=== PATIENT | female | born 1960 | race Caucasian/White ===

== ENCOUNTER → 2016-08-24 | Outpatient (CLI) | payer MEDICARE, OTHER ==
[~2016-08-24] MED LIST: ALBU17IN INH; ATIV2TAB PO; DRIS50002 PO; FISH1000 PO; FLUT1LOT; HYDR-3719 PO; IBUP80TA PO; LAMO10TA PO; LEVO125T3 PO; LEXA1TAB2 PO; LISI2.5T3 PO; MAXA10TA14 PO; METF500T PO; MOVA1TAB2 PO; PAME25CA PO; PROT1TAB2 PO; RANI15TA PO; SIMV20TA2 PO; TOPA100T8 PO; TOPA50TA7 PO; TOPR100T PO; TRAM50TA2 PO; ZANA4CAP PO; multivitamins PO
--- NOTE | 2016-09-16 00:20 | ECWPNPC ---
PATIENT NAME: MIRNA LYNN : 1960 GENDER: FEMALE VISIT DATE: 08/24/2016 DISCHARGE DATE: 08/24/16 1509 VISIT LOCKED DATE TIME: PHYSICIAN: MICHELLE BELL RESOURCE: MICHELLE BELL REASON FOR APPOINTMENT 1. FOLLOWUP-BACK HISTORY OF PRESENT ILLNESS HISTORY OF PRESENT ILLNESS: PAIN THE PATIENT DESCRIBES THE PAIN... FALL RISK SCREENING: SCREENING :NO FALLS IN THE PAST YEAR TODAY'S VISIT: NOTES: RATES PAIN TODAY 02/20. HAD EPISODE OF NUMBNESS AFTER STANDING FOR PROLONGED PERIOD. HAD SEVERE PAIN OVER LEFT SIDE. NUMBNESS EXTENDED ONLY INTO TO TOP OF THIGH. THIS LASTED FOR 1-1 1/2 HOURS. IS HAVING MORE PAIN ON LEFT. USUAL PAIN IS PRESENT ON THE RIGHT. SAW CARDIOLOGY. IS SEEING BOWLING OR SKATING FRONT DESK CLERK. . CURRENT MEDICATIONS TAKING TRAMADOL HCL 50 MG TABLET 1 TABLET ORALLY Q 4 HRUS PRN PAIN MDD=6 TAKING WELLBUTRIN XL 100 TABLET EXTENDED RELEASE 24 HOUR 1 TABLET IN THE MORNING ORALLY ONCE A DAY TAKING EC-81 ASPIRIN 81 MG TABLET DELAYED RELEASE 1 TABLET ORALLY ONCE A DAY TAKING VENTOLIN HFA 90 MCG/ACT AEROSOL SOLUTION 2 PUFFS NEEDED INHALATION EVERY 4 HRS TAKING LEXAPRO 20 20 MG TABLET 1 TAB(S) ORAL DAILY TAKING FLUTICASONE PROPIONATE 50 MCG/DOSE SUSPENSION 2 SPRAY IN EACH NOSTRIL NASALLY ONCE A DAY TAKING FISH OIL 1000 MG CAPSULE 1 CAPSULE ORALLY ONCE A DAY TAKING IBUPROFEN 800 MG TABLET 1 TAB ORAL QID PRN TAKING LAMOTRIGINE 100 MG TABLET 1 TAB(S) ORALLY TWICE A DAY TAKING LEVOXYL 125 MCG TABLET 1 TABLET ORALLY ONCE A DAY TAKING LISINOPRIL 2.5 MG TABLET 1 TABLET ORALLY ONCE A DAY TAKING ATIVAN 2 MG TABLET 1 TAB(S) ORALLY QID PRN TAKING METFORMIN HCL ER 500 MG TABLET EXTENDED RELEASE 24 HOUR 1 TAB(S) ORALLY BID TAKING TOPROL XL 100 MG TABLET EXTENDED RELEASE 1 TABLET ORALLY ONCE A DAY TAKING NORTRIPTYLINE HCL 25 MG CAPSULE 1 CAPSULE ORALLY BID TAKING MOVANTIK 25 MG TABLET 1 TABLET IN THE MORNING ORALLY ONCE A DAY TAKING PROTONIX 20 MG TABLET DELAYED RELEASE 2 TABLETS ORALLY ONCE A DAY TAKING ZANTAC 150 MAXIMUM STRENGTH 150 MG TABLET 1 TABLET ORALLY TWICE A DAY TAKING MAXALT-LOG SORTING SUPERVISOR 10 MG TABLET DISPERSIBLE 1 TABLET ON THE TONGUE AND ALLOW TO DISSOLVE NEEDED ONE TIME ORALLY ONCE A DAY TAKING SIMVASTATIN 20 MG TABLET 1 TAB(S) ORALLY ONCE A DAY TAKING TIZANIDINE HCL 4 MG TABLET 1 TABLET NEEDED ORALLY EVERY 8 HRS TAKING TOPAMAX 100 MG TABLET 1 TABLET ORALLY TWICE A DAY TAKING VITAMIN D (ERGOCALCIFEROL) 92402 UNIT CAPSULE 1 CAPSULE ORALLY WEEKLY TAKING MULTIVITAMIN - 1 TAB(S) ORALLY DAILY TAKING MAGNESIUM _ TABLET 1 TABLET WITH A MEAL ORALLY ONCE A DAY TAKING AMBIEN 10 MG TABLET 1 TABLET AT BEDTIME NEEDED ORALLY ONCE A DAY TAKING LIDOCAINE 5 % PATCH 1 PATCH TO INTACT SKIN REMOVE AFTER 12 HOURS EXTERNALLY ONCE A DAY TAKING NORCO 10-325 MG TABLET 1-2 TABLET ORALLY EVERY 6 HRS PRN NOT-TAKING VALIUM 5 MG TABLET 1 TABLET ORALLY TAKE ON ARRIVAL FOR INJECTION NOT-TAKING VALIUM 10 MG TABLET 1 TABLET ORALLY TAKE ON ARRIVAL FOR PROCEDURE NOT-TAKING TYLENOL ARTHRITIS PAIN 650 MG TABLET EXTENDED RELEASE ORALLY BID PRN NOT-TAKING TRAMADOL HCL 50 MG TABLET 1-2 TABLET ORALLY EVERY 8 PRN PAIN MDD=3 MEDICATION LIST REVIEWED AND RECONCILED WITH THE PATIENT PAST MEDICAL HISTORY SMALL ARTERY DIABETES HTN A FIB HYPOTHYROIDISM FIBROMYALGIA PTSD ANXIETY/DEPRESSION DDD SPINAL STENOSIS ARTHRITIS ELEVATED CHOLESTEROL/TRIGLYCERIDES IBS ALLERGIES SULFA (FOR ALLERGY USE ONLY): RASH, HEADACHE: ALLERGY ENVIRONMENTAL: NASAL DRAINAGE, ITCHY EYES: ALLERGY SOCIAL HISTORY GENERAL: TOBACCO USE ARE YOU A:NONSMOKER LEARNING BARRIERS / SPECIAL NEEDS ORIENTED TO PLAN OF CARE: PATIENT, PAIN MANAGEMENT PATIENT, ORIENTED TO PLAN OF CARE: PATIENT, PAIN MANAGEMENT PATIENT. NEW PATIENT PAIN DIARY TODAY'S VISITNOTES FROM 0-10, WHAT LEVEL IS YOUR PAIN TODAY?0 PAIN CLINIC PFS, CLERGY, PUBLIC HEALTH REFERRALS PFS REFERRAL NEEDED?NO CLERGY REFERRAL NEEDED?NO PUBLIC HEALTH REFERRAL NEEDED?NO WAS THE PROVIDER NOTIFIED OF ANY PERTINENT INFO?NO PFS REFERRAL NEEDED?NO CLERGY REFERRAL NEEDED?NO PUBLIC HEALTH REFERRAL NEEDED?NO WAS THE PROVIDER NOTIFIED OF ANY PERTINENT INFO?NO REVIEW OF SYSTEMS CONSTITUTIONAL: ANY CHANGE IN YOUR MEDICAL CONDITION? NO . CHILLS NO . FEVER NO . INFECTION: DO YOU HAVE NEW INFECTIONS? NO . DO YOU HAVE HISTORY OF MRSA? NO . MUSCULOSKELETAL: ANY NEW PATTERNS OF PAIN OR NUMBNESS? YES,LEFT LUMBAR AREA WENT NUMB ON HER 07/08/16 AFTER BEING ON HER FEET A LOT. NOW EVERY ONCE IN A WHILE IT WILL BOTHER HER AGAIN. . GASTROENTEROLOGY: ANY NEW CHANGE IN BOWEL CONTROL? NO . GENITOURINARY: ANY NEW CHANGE IN BLADDER CONTROL? NO . IS THERE A CHANCE YOU COULD BE ? NO . HEMATOLOGY/LYMPH: DO YOU TAKE ANY BLOOD THINNERS? (FOR EXAMPLE- COUMADIN, PLAVIX, AGGRENOX, PLATEL, PRADAXA, OR XARELTO) NO . WHEN WAS YOUR LAST DOSE? DATE: TIME: . NEUROLOGY: HAVE YOU FALLEN IN THE PAST 6 MONTHS? YES, TRIPPED A COUPLE OF MONTHS AGO, NO INJURY. LOSES HER BALANCE MORE THAN NORMAL. . ANY NEW EXTREMITY NUMBNESS OR WEAKNESS? YES, NUMBNESS DOWN LEFT BUTTOCK AND LEG . CARDIOLOGY: DO YOU HAVE A PACEMAKER OR DEFIBRILLATOR? NO . RESPIRATORY: HAVE YOU BEEN SICK IN THE PAST WEEK? NO . FEVER NO . FLU LIKE SYMPTOMS? NO . COUGH NO . INTEGUMENTARY: DO YOU HAVE ANY RASHES OR OPEN SORES? YES, UNDER RIGHT BREAST . ALLERGIC/IMMUNO: ARE YOU ALLERGIC TO SHELLFISH OR IV DYE? NO . ANY NEW ALLERGIES? NO . PSYCHIATRIC: DO YOU HAVE THOUGHTS OF HURTING YOURSELF OR SOMEONE ELSE? NO . ARE YOU ABUSED, NEGLECTED, OR IN AN UNSAFE ENVIRONMENT? NO . ENDOCRINOLOGY: ARE YOU DIABETIC? YES . OTHER: DO YOU NEED ANY PRESCRIPTIONS? YES, TRAMADOL AND HYDROCODONE . IF YES, PLEASE LIST: ____ . ANY NEW PROBLEMS WITH YOUR MEDICATIONS? NO . WHEN DID YOU LAST EAT? ____ . WHEN DID YOU LAST DRINK? ____ . WHAT DID YOU LAST DRINK? ____ . NAME OF PERSON DRIVING YOU HOME? ____ . DO YOU HAVE ANY OTHER QUESTIONS OR CONCERNS NO . PSYCHOLOGY: ANXIETY MULTIPLE FAMILY STRESSERS. . REVIEWED BY: PROVIDER: MICHELLE BARRIGA . VITAL SIGNS WT 249.8 LBS, HT 62 IN, BMI 45.68 INDEX, BP 154/98 MM HG, HR 91 /MIN, RR 16 /MIN, TEMP 99.4 F, OXYGEN SAT % 97%, NA INITIALS SC 14:16. EXAMINATION GENERAL EXAMINATION: PSYCHALERT , ORIENTED X 3 , APPROPRIATE MOOD AND AFFECT , GOOD EYE CONTACT. LUNGS:CLEAR TO AUSCULTATION BILATERALLY. HEART:HEART RATE REGULAR, RPID. MUSCULOSKELETAL:PALPATION: POSITIVE FOR PAIN OVER L/S SPINE. POSITIVE FOR PAIN OVER L/S PARSPINALS, RIGHT SIDES GREATER THAN LEFT. GAIT SLOW,WIDE-BASED. EXQUISITE TENDERNESS OVER LEFT>RIGHT SIJ., TRIGGER POINTS:, ELICITED WITH PALPATION OVER LUMBAR PARAVERTEBRAL MUSCLES AND INTO THE SACRUM. RESTRICTION OF ROM IN THIS AREA. ASSESSMENTS LUMBAR FACET ARTHROPATHY - M46.96 (PRIMARY) BILATERAL SACROILIITIS - M46.1 MYALGIA - M79.1 CHRONIC PRESCRIPTION OPIATE USE - Z79.899 TREATMENT LUMBAR FACET ARTHROPATHY STOP NORCO TABLET, 10-325 MG, 1-2 TABLET, ORALLY, EVERY 6 HRS PRN START PERCOCET TABLET, 5-325 MG, 1 TABLET NEEDED, ORALLY, EVERY 6 HRS PRN PAIN MDD=4, 30 DAY(S), 120, REFILLS 0 NOTES: CALL WHEN ABLE TO RESCHEDULE INJECTION. UTOX TODAY. DISCUSSION HELD REGARDING INJECTION TREATMENT BUT DUE TO ELEVATED STRESS WOULD LIKE TO HOLD FOR NOW. WALKING , STRETCHES AND EXERCISE ENCOURAGED. CLINICAL NOTES: ISTOP REGISTRY REVIEWED AND DEMNOSTRATES COMPLLIANCE. BRINGS IN MEDICATIONS WHICH IS APPROPRIATE FOR WHAT WAS DISPENSED. RECENT URINE TOXICOLOGY REVIEWED. NO UNAUTHORIZED MEDICATIONS. NO ILLICIT SUBSTANCES AND PRESCRIBED MEDICATIONS WERE PRESENT. , #128 - SCREENING BMI AND F/U PLAN IN : BMI ABOVE NORMAL TODAY. DISCUSSED WITH PATIENT NUTRITIONAL FOOD CHOICES TO ASSIST WITH WEIGHT LOSS. RECCOMMENDED REDUCING SALT, SUGAR, SODA INTAKE. RECOMMEND INCREASE ACTIVITY TO INCLUDE WALKING ON A REGULAR BASIS. PROCEDURE CODES FA211 ESTABILISHED PATIENT [facility] CHARGE G8783 BP SCR PRFRM RCMDD DEFIND SCR INTVL G8730 PAIN ASSESS POS TOOL F/U PLAN DOC 3016F PT SCRND UNHLTHY OH USE 1124F ACP DISCUSS-NO DSCNMKR DOCD 1036F TOBACCO NON-USER G8427 DOC MEDS VERIFIED W/PT OR RE G8417 BMI >=30 CALCUATE W/FOLLOWUP 3288F FALL RISK ASSESSMENT DOCD FOLLOW UP 6 WEEKS ELECTRONICALLY SIGNED BY NANCY COUCH ON 09/15/2016 AT 09:01 AM EST DISCLAIMER : THIS IS A VISIT SUMMARY EXTRACTED FROM THE [employer] CHART. IT IS NOT A COPY OF THE [employer] PROGRESS NOTE. MTDD
== END ==
LOC: M PAIN 13:40
PROVIDERS: ATTEND Nurse Practitioner Family
DX: M46.1 Sacroiliitis, not elsewhere classified (principal); M79.1 Myalgia; Z79.899 Other long term (current) drug therapy; Z79.891 Long term (current) use of opiate analgesic; Z79.82 Long term (current) use of aspirin; Z79.84 Long term (current) use of oral hypoglycemic drugs; E11.9 Type 2 diabetes mellitus without complications; I10 Essential (primary) hypertension; M19.90 Unspecified osteoarthritis, unspecified site; E03.9 Hypothyroidism, unspecified; M48.00 Spinal stenosis, site unspecified; G89.29 Other chronic pain; F41.9 Anxiety disorder, unspecified; F43.10 Post-traumatic stress disorder, unspecified

== ENCOUNTER → 2016-10-17 | Outpatient (CLI) | payer MEDICARE, OTHER ==
--- NOTE | 2016-10-17 23:54 | ECWPNPC ---
PATIENT NAME: MIRNA LYNN : 1960 GENDER: FEMALE VISIT DATE: 10/17/2016 DISCHARGE DATE: 10/17/16 1500 VISIT LOCKED DATE TIME: PHYSICIAN: MICHELLE BELL RESOURCE: MICHELLE BELL REASON FOR APPOINTMENT 1. BACK, FIBRO HISTORY OF PRESENT ILLNESS HISTORY OF PRESENT ILLNESS: PAIN THE PATIENT DESCRIBES THE PAIN... FALL RISK SCREENING: SCREENING :NO FALLS IN THE PAST YEAR TODAY'S VISIT: NOTES: RATES PAIN TODAY 10/21. .HAS BEEN HAVING SWELLING OF LEFT FOOT AND TOES WITH TOES TURNING COLORS, WELL BOTH HANDS. DESCRIBES PAIN CONSTANT, ACHING, BURNING, SHARP AND STABBING, TENDR , THROBBING AND SORE, WITH SHOOTING PAIN INTO HIPS AND LEGS.. CURRENT MEDICATIONS TAKING WELLBUTRIN XL 100 TABLET EXTENDED RELEASE 24 HOUR 1 TABLET IN THE MORNING ORALLY ONCE A DAY TAKING EC-81 ASPIRIN 81 MG TABLET DELAYED RELEASE 1 TABLET ORALLY ONCE A DAY TAKING VENTOLIN HFA 90 MCG/ACT AEROSOL SOLUTION 2 PUFFS NEEDED INHALATION EVERY 4 HRS TAKING LEXAPRO 20 20 MG TABLET 1 TAB(S) ORAL DAILY TAKING FLUTICASONE PROPIONATE 50 MCG/DOSE SUSPENSION 2 SPRAY IN EACH NOSTRIL NASALLY ONCE A DAY TAKING FISH OIL 1000 MG CAPSULE 1 CAPSULE ORALLY ONCE A DAY TAKING IBUPROFEN 800 MG TABLET 1 TAB ORAL QID PRN TAKING LEVOXYL 125 MCG TABLET 1 TABLET ORALLY ONCE A DAY TAKING LISINOPRIL 2.5 MG TABLET 1 TABLET ORALLY ONCE A DAY TAKING ATIVAN 2 MG TABLET 1 TAB(S) ORALLY QID PRN TAKING METFORMIN HCL ER 500 MG TABLET EXTENDED RELEASE 24 HOUR 1 TAB(S) ORALLY BID TAKING TOPROL XL 100 MG TABLET EXTENDED RELEASE 1 TABLET ORALLY ONCE A DAY TAKING NORTRIPTYLINE HCL 25 MG CAPSULE 1 CAPSULE ORALLY BID TAKING MOVANTIK 25 MG TABLET 1 TABLET IN THE MORNING ORALLY ONCE A DAY TAKING PROTONIX 20 MG TABLET DELAYED RELEASE 2 TABLETS ORALLY ONCE A DAY TAKING ZANTAC 150 MAXIMUM STRENGTH 150 MG TABLET 1 TABLET ORALLY TWICE A DAY TAKING MAXALT-SHELF DRIER OPERATOR 10 MG TABLET DISPERSIBLE 1 TABLET ON THE TONGUE AND ALLOW TO DISSOLVE NEEDED ONE TIME ORALLY ONCE A DAY TAKING SIMVASTATIN 20 MG TABLET 1 TAB(S) ORALLY ONCE A DAY TAKING TIZANIDINE HCL 4 MG TABLET 1-2 TABLET NEEDED ORALLY EVERY 8 HRS TAKING TOPAMAX 100 MG TABLET 1 TABLET ORALLY TWICE A DAY TAKING VITAMIN D (ERGOCALCIFEROL) 07002 UNIT CAPSULE 1 CAPSULE ORALLY WEEKLY TAKING MULTIVITAMIN - 1 TAB(S) ORALLY DAILY TAKING MAGNESIUM _ TABLET 1 TABLET WITH A MEAL ORALLY ONCE A DAY TAKING AMBIEN 10 MG TABLET 1 TABLET AT BEDTIME NEEDED ORALLY ONCE A DAY TAKING LIDOCAINE 5 % PATCH 1 PATCH TO INTACT SKIN REMOVE AFTER 12 HOURS EXTERNALLY ONCE A DAY TAKING TRAMADOL HCL 50 MG TABLET 1 TABLET ORALLY Q 4 HRUS PRN PAIN MDD=6 TAKING NORCO 10-325 MG TABLET 1 TABLET NEEDED ORALLY EVERY 6 HRS PRN PAIN MDD=4 NOT-TAKING PERCOCET 5-325 MG TABLET 1 TABLET NEEDED ORALLY EVERY 6 HRS PRN PAIN MDD=4 NOT-TAKING VALIUM 5 MG TABLET 1 TABLET ORALLY TAKE ON ARRIVAL FOR INJECTION NOT-TAKING VALIUM 10 MG TABLET 1 TABLET ORALLY TAKE ON ARRIVAL FOR PROCEDURE NOT-TAKING TYLENOL ARTHRITIS PAIN 650 MG TABLET EXTENDED RELEASE ORALLY BID PRN NOT-TAKING TRAMADOL HCL 50 MG TABLET 1-2 TABLET ORALLY EVERY 8 PRN PAIN MDD=3 DISCONTINUED LAMOTRIGINE 100 MG TABLET 1 TAB(S) ORALLY TWICE A DAY MEDICATION LIST REVIEWED AND RECONCILED WITH THE PATIENT PAST MEDICAL HISTORY SMALL ARTERY DIABETES HTN A FIB HYPOTHYROIDISM FIBROMYALGIA PTSD ANXIETY/DEPRESSION DDD SPINAL STENOSIS ARTHRITIS ELEVATED CHOLESTEROL/TRIGLYCERIDES IBS ALLERGIES SULFA (FOR ALLERGY USE ONLY): RASH, HEADACHE: ALLERGY ENVIRONMENTAL: NASAL DRAINAGE, ITCHY EYES: ALLERGY SOCIAL HISTORY GENERAL: TOBACCO USE ARE YOU A:NONSMOKER LEARNING BARRIERS / SPECIAL NEEDS ORIENTED TO PLAN OF CARE: PATIENT, PAIN MANAGEMENT PATIENT, ORIENTED TO PLAN OF CARE: PATIENT, PAIN MANAGEMENT PATIENT. NEW PATIENT PAIN DIARY TODAY'S VISITNOTES FROM 0-10, WHAT LEVEL IS YOUR PAIN TODAY?0 PAIN CLINIC PFS, CLERGY, PUBLIC HEALTH REFERRALS PFS REFERRAL NEEDED?NO CLERGY REFERRAL NEEDED?NO PUBLIC HEALTH REFERRAL NEEDED?NO WAS THE PROVIDER NOTIFIED OF ANY PERTINENT INFO?NO PFS REFERRAL NEEDED?NO CLERGY REFERRAL NEEDED?NO PUBLIC HEALTH REFERRAL NEEDED?NO WAS THE PROVIDER NOTIFIED OF ANY PERTINENT INFO?NO REVIEW OF SYSTEMS CONSTITUTIONAL: ANY CHANGE IN YOUR MEDICAL CONDITION? NO . CHILLS NO . FEVER NO . INFECTION: DO YOU HAVE NEW INFECTIONS? NO . DO YOU HAVE HISTORY OF MRSA? NO . MUSCULOSKELETAL: ANY NEW PATTERNS OF PAIN OR NUMBNESS? NO . GASTROENTEROLOGY: GENERAL HAD GI BUG LAST WEEK . ANY NEW CHANGE IN BOWEL CONTROL? NO . GENITOURINARY: ANY NEW CHANGE IN BLADDER CONTROL? NO . IS THERE A CHANCE YOU COULD BE ? NO . HEMATOLOGY/LYMPH: DO YOU TAKE ANY BLOOD THINNERS? (FOR EXAMPLE- COUMADIN, PLAVIX, AGGRENOX, PLATEL, PRADAXA, OR XARELTO) NO . WHEN WAS YOUR LAST DOSE? DATE: TIME: . NEUROLOGY: HAVE YOU FALLEN IN THE PAST 6 MONTHS? NO . ANY NEW EXTREMITY NUMBNESS OR WEAKNESS? NO . CARDIOLOGY: DO YOU HAVE A PACEMAKER OR DEFIBRILLATOR? NO . RESPIRATORY: HAVE YOU BEEN SICK IN THE PAST WEEK? YES STOMACH BUG, LASTED ABOUT A WEEK, NOW RESOLVED . FEVER NO . FLU LIKE SYMPTOMS? NO . COUGH NO . INTEGUMENTARY: DO YOU HAVE ANY RASHES OR OPEN SORES? NO . ALLERGIC/IMMUNO: ARE YOU ALLERGIC TO SHELLFISH OR IV DYE? NO . ANY NEW ALLERGIES? NO . PSYCHIATRIC: DO YOU HAVE THOUGHTS OF HURTING YOURSELF OR SOMEONE ELSE? NO . ARE YOU ABUSED, NEGLECTED, OR IN AN UNSAFE ENVIRONMENT? NO . ENDOCRINOLOGY: ARE YOU DIABETIC? YES . OTHER: DO YOU NEED ANY PRESCRIPTIONS? NO . IF YES, PLEASE LIST: ____ . ANY NEW PROBLEMS WITH YOUR MEDICATIONS? NO . WHEN DID YOU LAST EAT? ____ . WHEN DID YOU LAST DRINK? ____ . WHAT DID YOU LAST DRINK? ____ . NAME OF PERSON DRIVING YOU HOME? ____ . DO YOU HAVE ANY OTHER QUESTIONS OR CONCERNS YES WOULD LIKE TO DISCUSS BLOOD WORK, AND NEED FOR AN XRAY TOE . REVIEWED BY: PROVIDER: MICHELLE BARRIGA . VITAL SIGNS WT 246.8 LBS, HT 62 IN, BMI 45.14 INDEX, BP 152/94 MM HG, HR 89 /MIN, RR 18 /MIN, TEMP 99.4 F, OXYGEN SAT % 96%, NA INITIALS CATHI REED. EXAMINATION GENERAL EXAMINATION: PSYCHALERT , ORIENTED X 3 , APPROPRIATE MOOD AND AFFECT , GOOD EYE CONTACT. LUNGS:CLEAR TO AUSCULTATION BILATERALLY. HEART:HEART RATE REGULAR, RPID. MUSCULOSKELETAL:PALPATION: POSITIVE FOR PAIN OVER L/S SPINE. POSITIVE FOR PAIN OVER L/S PARSPINALS, RIGHT SIDES GREATER THAN LEFT. TENDERNESS OVER LEFT>RIGHT SIJ., TRIGGER POINTS:, ELICITED WITH PALPATION OVER LUMBAR PARAVERTEBRAL MUSCLES AND INTO THE SACRUM. RESTRICTION OF ROM IN THIS AREA. ASSESSMENTS LUMBAR FACET ARTHROPATHY - M46.96 (PRIMARY) BILATERAL SACROILIITIS - M46.1 MYALGIA - M79.1 CHRONIC PRESCRIPTION OPIATE USE - Z79.899 SYSTEMIC LUPUS ERYTHEMATOSUS, UNSPECIFIED SLE TYPE, UNSPECIFIED ORGAN INVOLVEMENT STATUS - M32.9 TREATMENT LUMBAR FACET ARTHROPATHY INJECTION FACET JOINT/NERVE LUMBAR/SACRALARABELLAMICHELLE Gildardo 10/17/2016 2:18:54 PM > LUMBAR THERAPEUTIC FACETS WITH SEDATION NOTES: DISPOSE OF OXYCODONE WITH FORMAL COUNT,FACET JOINT INJECTION MATERIAL WAS PRINTED,FACET JOINT INJECTION: YOUR EXPERIENCE MATERIAL WAS PRINTEDNO DIABETES MEDS AM OF INJECTION. [facility]AL [facility] REASON:LAB POSITIVE FOR LUPUS - HAD PREVIOUSLY SEEN RHEUMATOLOGY IN [place] 9 YEARS AGO - FELT TO BE POSITIVE FOR LUPUS THEM. HAVING MORE JOINT AND SKIN ISSUES PROCEDURE CODES FA211 ESTABILISHED PATIENT [facility] CHARGE G8730 PAIN ASSESS POS TOOL F/U PLAN DOC G8427 DOC MEDS VERIFIED W/PT OR RE DISPOSITION & COMMUNICATION FOLLOW UP CONTINE CURRENT MEDS (REASON: 7 WEEKS) ELECTRONICALLY SIGNED BY NANCY COUCH ON 10/17/2016 AT 06:50 PM EST DISCLAIMER : THIS IS A VISIT SUMMARY EXTRACTED FROM THE [employer] CHART. IT IS NOT A COPY OF THE [employer] PROGRESS NOTE. YANA
== END ==
LOC: M PAIN 13:20
PROVIDERS: ATTEND Nurse Practitioner Family
DX: Z09 Encounter for follow-up examination after completed treatment for conditions other than malignant neoplasm (principal); G89.29 Other chronic pain; M46.1 Sacroiliitis, not elsewhere classified; M79.1 Myalgia; M32.9 Systemic lupus erythematosus, unspecified; E11.9 Type 2 diabetes mellitus without complications; I48.91 Unspecified atrial fibrillation; E03.9 Hypothyroidism, unspecified; F43.10 Post-traumatic stress disorder, unspecified; F41.9 Anxiety disorder, unspecified; F32.9 Major depressive disorder, single episode, unspecified; M51.9 Unspecified thoracic, thoracolumbar and lumbosacral intervertebral disc disorder; M48.00 Spinal stenosis, site unspecified; E78.00 Pure hypercholesterolemia, unspecified; K58.9 Irritable bowel syndrome, unspecified; Z88.2 Allergy status to sulfonamides; J30.89 Other allergic rhinitis; Z79.82 Long term (current) use of aspirin; Z79.1 Long term (current) use of non-steroidal anti-inflammatories (NSAID); Z79.891 Long term (current) use of opiate analgesic; Z79.899 Other long term (current) drug therapy

== ENCOUNTER → 2016-12-05 | Outpatient (CLI) | payer MEDICARE, OTHER ==
--- NOTE | 2016-12-22 00:45 | ECWPNPC ---
PATIENT NAME: MIRNA LYNN : 1960 GENDER: FEMALE VISIT DATE: 12/05/2016 DISCHARGE DATE: 12/05/16 1552 VISIT LOCKED DATE TIME: PHYSICIAN: MICHELLE BELL RESOURCE: MICHELLE BELL REASON FOR APPOINTMENT 1. 7 WEEKS HISTORY OF PRESENT ILLNESS HISTORY OF PRESENT ILLNESS: PAIN THE PATIENT DESCRIBES THE PAIN... FALL RISK SCREENING: SCREENING :NO FALLS IN THE PAST YEAR TODAY'S VISIT: NOTES: RATES PAIN LEVEL TODAY 6/10. DESCRIBES PAIN CONSTANT, BURNING, SHARP, STABBING, TENDER, SORE AND SHOOTING.RECENT BRONCHITIS JUST FINISHING ZPACK AND STEROIDS. HAD PREVIOUS GI BUG AND HAS HAD WORKUP. HAS A SENSE OF BUZZING IN BOTH HANDS FROM WRIST TO TIPS R>L. . CURRENT MEDICATIONS TAKING WELLBUTRIN XL 100 TABLET EXTENDED RELEASE 24 HOUR 1 TABLET IN THE MORNING ORALLY ONCE A DAY TAKING EC-81 ASPIRIN 81 MG TABLET DELAYED RELEASE 1 TABLET ORALLY ONCE A DAY TAKING VENTOLIN HFA 90 MCG/ACT AEROSOL SOLUTION 2 PUFFS NEEDED INHALATION EVERY 4 HRS TAKING LEXAPRO 20 20 MG TABLET 1 TAB(S) ORAL DAILY TAKING FLUTICASONE PROPIONATE 50 MCG/DOSE SUSPENSION 2 SPRAY IN EACH NOSTRIL NASALLY ONCE A DAY TAKING FISH OIL 1000 MG CAPSULE 1 CAPSULE ORALLY ONCE A DAY TAKING IBUPROFEN 800 MG TABLET 1 TAB ORAL QID PRN TAKING LEVOXYL 125 MCG TABLET 1 TABLET ORALLY ONCE A DAY TAKING LISINOPRIL 2.5 MG TABLET 1 TABLET ORALLY ONCE A DAY TAKING METFORMIN HCL ER 500 MG TABLET EXTENDED RELEASE 24 HOUR 1 TAB(S) ORALLY BID TAKING TOPROL XL 100 MG TABLET EXTENDED RELEASE 1 TABLET ORALLY ONCE A DAY TAKING NORTRIPTYLINE HCL 25 MG CAPSULE 1 CAPSULE ORALLY BID TAKING MOVANTIK 25 MG TABLET 1 TABLET IN THE MORNING ORALLY ONCE A DAY TAKING PROTONIX 20 MG TABLET DELAYED RELEASE 2 TABLETS ORALLY ONCE A DAY TAKING ZANTAC 150 MAXIMUM STRENGTH 150 MG TABLET 1 TABLET ORALLY TWICE A DAY TAKING MAXALT-NEGOTIATIONS DIRECTOR 10 MG TABLET DISPERSIBLE 1 TABLET ON THE TONGUE AND ALLOW TO DISSOLVE NEEDED ONE TIME ORALLY ONCE A DAY TAKING SIMVASTATIN 20 MG TABLET 1 TAB(S) ORALLY ONCE A DAY TAKING TIZANIDINE HCL 4 MG TABLET 1-2 TABLET NEEDED ORALLY EVERY 8 HRS TAKING TOPAMAX 100 MG TABLET 1 TABLET ORALLY TWICE A DAY TAKING VITAMIN D (ERGOCALCIFEROL) 63346 UNIT CAPSULE 1 CAPSULE ORALLY WEEKLY TAKING MULTIVITAMIN - 1 TAB(S) ORALLY DAILY TAKING MAGNESIUM _ TABLET 1 TABLET WITH A MEAL ORALLY ONCE A DAY TAKING AMBIEN 10 MG TABLET 1 TABLET AT BEDTIME NEEDED ORALLY ONCE A DAY TAKING LIDOCAINE 5 % PATCH 1 PATCH TO INTACT SKIN REMOVE AFTER 12 HOURS EXTERNALLY ONCE A DAY TAKING TRAMADOL HCL 50 MG TABLET 1 TABLET ORALLY Q 4 HRUS PRN PAIN MDD=6 TAKING NORCO 10-325 MG TABLET 1 TABLET NEEDED ORALLY EVERY 6 HRS PRN PAIN MDD=4 NOT-TAKING ATIVAN 2 MG TABLET 1 TAB(S) ORALLY QID PRN NOT-TAKING PERCOCET 5-325 MG TABLET 1 TABLET NEEDED ORALLY EVERY 6 HRS PRN PAIN MDD=4 NOT-TAKING VALIUM 5 MG TABLET 1 TABLET ORALLY TAKE ON ARRIVAL FOR INJECTION NOT-TAKING VALIUM 10 MG TABLET 1 TABLET ORALLY THREE TIMES DAILY NOT-TAKING TYLENOL ARTHRITIS PAIN 650 MG TABLET EXTENDED RELEASE ORALLY BID PRN NOT-TAKING TRAMADOL HCL 50 MG TABLET 1-2 TABLET ORALLY EVERY 8 PRN PAIN MDD=3 MEDICATION LIST REVIEWED AND RECONCILED WITH THE PATIENT PAST MEDICAL HISTORY SMALL ARTERY DIABETES HTN A FIB HYPOTHYROIDISM FIBROMYALGIA PTSD ANXIETY/DEPRESSION DDD SPINAL STENOSIS ARTHRITIS ELEVATED CHOLESTEROL/TRIGLYCERIDES IBS ALLERGIES SULFA (FOR ALLERGY USE ONLY): RASH, HEADACHE: ALLERGY ENVIRONMENTAL: NASAL DRAINAGE, ITCHY EYES: ALLERGY SOCIAL HISTORY GENERAL: PAIN CLINIC PFS, CLERGY, PUBLIC HEALTH REFERRALS CLERGY REFERRAL NEEDED?NO WAS THE PROVIDER NOTIFIED OF ANY PERTINENT INFO?NO PFS REFERRAL NEEDED?NO PUBLIC HEALTH REFERRAL NEEDED?NO PATIENT: ____. REVIEW OF SYSTEMS CONSTITUTIONAL: ANY CHANGE IN YOUR MEDICAL CONDITION? YES PT RECENTLY DIAGNOSED WITH LUPUS . CHILLS NO . FEVER NO . INFECTION: DO YOU HAVE NEW INFECTIONS? NO . DO YOU HAVE HISTORY OF MRSA? NO . MUSCULOSKELETAL: ANY NEW PATTERNS OF PAIN OR NUMBNESS? YES PT REPORTS A NEW &QUOT;BUZZING&QUOT; FEELING IN BOTH HANDS, AND SOMETIMES IN FEET WELL. . GASTROENTEROLOGY: ANY NEW CHANGE IN BOWEL CONTROL? NO . GENITOURINARY: ANY NEW CHANGE IN BLADDER CONTROL? NO . IS THERE A CHANCE YOU COULD BE ? NO . HEMATOLOGY/LYMPH: DO YOU TAKE ANY BLOOD THINNERS? (FOR EXAMPLE- COUMADIN, PLAVIX, AGGRENOX, PLATEL, PRADAXA, OR XARELTO) NO . WHEN WAS YOUR LAST DOSE? DATE: TIME: . NEUROLOGY: HAVE YOU FALLEN IN THE PAST 6 MONTHS? NO . ANY NEW EXTREMITY NUMBNESS OR WEAKNESS? NO . CARDIOLOGY: DO YOU HAVE A PACEMAKER OR DEFIBRILLATOR? NO . RESPIRATORY: HAVE YOU BEEN SICK IN THE PAST WEEK? YES PT TREATED FOR BRONCHITIS WITH A Z-PACK, PREDNISONE TAPER. PT FEELS THAT BRONCHITIS IS RESOLVING. . FEVER NO . FLU LIKE SYMPTOMS? NO . COUGH NO . INTEGUMENTARY: DO YOU HAVE ANY RASHES OR OPEN SORES? YES PT HAS A RED RASH OVER BOTH CHEEKS, NOT ITCHY OR RAISED . ALLERGIC/IMMUNO: ARE YOU ALLERGIC TO SHELLFISH OR IV DYE? NO . ANY NEW ALLERGIES? NO . PSYCHIATRIC: DO YOU HAVE THOUGHTS OF HURTING YOURSELF OR SOMEONE ELSE? NO . ARE YOU ABUSED, NEGLECTED, OR IN AN UNSAFE ENVIRONMENT? NO . ENDOCRINOLOGY: ARE YOU DIABETIC? YES . OTHER: DO YOU NEED ANY PRESCRIPTIONS? YES . IF YES, PLEASE LIST: ____TRAMADOL, HYDROCODONE . ANY NEW PROBLEMS WITH YOUR MEDICATIONS? NO . WHEN DID YOU LAST EAT? ____ . WHEN DID YOU LAST DRINK? ____ . WHAT DID YOU LAST DRINK? ____ . NAME OF PERSON DRIVING YOU HOME? ____ . DO YOU HAVE ANY OTHER QUESTIONS OR CONCERNS YES PT HAS BEEN SICK OVER A MONTH WITH STOMACH ISSUES, AND HAD SOME TESTING DONE . REVIEWED BY: PROVIDER: MICHELLE BARRIGA . VITAL SIGNS WT 247.2 LBS, HT 62 IN, BMI 45.21 INDEX, BP 161/80 MM HG, HR 58 /MIN, RR 18 /MIN, TEMP 99.4 F, OXYGEN SAT % 96%, NA INITIALS SC 14:27. EXAMINATION GENERAL EXAMINATION: PSYCHALERT , ORIENTED X 3 , APPROPRIATE MOOD AND AFFECT , GOOD EYE CONTACT. LUNGS:CLEAR TO AUSCULTATION BILATERALLY. HEART:HEART RATE REGULAR, RPID. MUSCULOSKELETAL:PALPATION: POSITIVE FOR PAIN OVER L/S SPINE. POSITIVE FOR PAIN OVER L/S PARSPINALS, RIGHT SIDES GREATER THAN LEFT. TENDERNESS OVER LEFT>RIGHT SIJ., TRIGGER POINTS:, ELICITED WITH PALPATION OVER LUMBAR PARAVERTEBRAL MUSCLES AND INTO THE SACRUM. RESTRICTION OF ROM IN THIS AREA. ASSESSMENTS LUMBAR FACET ARTHROPATHY - M46.96 (PRIMARY) BILATERAL SACROILIITIS - M46.1 MYALGIA - M79.1 CHRONIC PRESCRIPTION OPIATE USE - Z79.899 SYSTEMIC LUPUS ERYTHEMATOSUS, UNSPECIFIED SLE TYPE, UNSPECIFIED ORGAN INVOLVEMENT STATUS - M32.9 TREATMENT LUMBAR FACET ARTHROPATHY REFILL TRAMADOL HCL TABLET, 50 MG, 1 TABLET, ORALLY, Q 4 HRUS PRN PAIN MDD=6, 30 DAY(S), 180, REFILLS 2 REFILL NORCO TABLET, 10-325 MG, 1 TABLET NEEDED, ORALLY, EVERY 6 HRS PRN PAIN MDD=4, 30 DAY(S), 120, REFILLS 0 NOTES: CONTINUE WALKING, EXERCISES AND STRETCHES.,FACET JOINT INJECTION: YOUR EXPERIENCE MATERIAL WAS PRINTED. OTHERS NOTES: IS SCHEDULED BILATERAL THERAPEUTIC LUMBAR FACET BLOCK WITH SEDATION. PREVENTIVE MEDICINE PAIN CLINIC TEACHING: PROCEDURE TEACHING REVIEWED FACET INJECTIONS AND IV SEDATION WITH PATIENT. SHE VERBALIZED UNDERSTANDING. CM. PROCEDURE CODES FA211 ESTABILISHED PATIENT [facility] CHARGE G8730 PAIN ASSESS POS TOOL F/U PLAN DOC G8427 DOC MEDS VERIFIED W/PT OR RE DISPOSITION & COMMUNICATION FOLLOW UP AFTER INJECTION - ELECTRONICALLY SIGNED BY NANCY COUCH ON 12/21/2016 AT 11:56 AM EDT DISCLAIMER : THIS IS A VISIT SUMMARY EXTRACTED FROM THE [employer] CHART. IT IS NOT A COPY OF THE [employer] PROGRESS NOTE. YANA
== END ==
LOC: M PAIN 14:20
PROVIDERS: ATTEND Nurse Practitioner Family
DX: G89.29 Other chronic pain (principal); M46.1 Sacroiliitis, not elsewhere classified; M79.1 Myalgia; M32.9 Systemic lupus erythematosus, unspecified; E11.9 Type 2 diabetes mellitus without complications; I10 Essential (primary) hypertension; I48.91 Unspecified atrial fibrillation; E03.9 Hypothyroidism, unspecified; F43.10 Post-traumatic stress disorder, unspecified; F41.9 Anxiety disorder, unspecified; F32.9 Major depressive disorder, single episode, unspecified; M47.819 Spondylosis without myelopathy or radiculopathy, site unspecified; M19.90 Unspecified osteoarthritis, unspecified site; E78.00 Pure hypercholesterolemia, unspecified; Z88.2 Allergy status to sulfonamides; J30.9 Allergic rhinitis, unspecified; Z79.82 Long term (current) use of aspirin; Z79.84 Long term (current) use of oral hypoglycemic drugs; Z79.899 Other long term (current) drug therapy

== ENCOUNTER → 2016-12-13 | Outpatient (CLI) | payer MEDICARE, OTHER ==
[~2016-12-13] MED LIST changes: +BUPIVACAINE HCL 0.25% 30 ML VIAL As Ordered ONE; +ISOVUE-M 300 61% 15ML VIAL (Q9967) As Ordered ONE; +LIDOCAINE 1% SDV INJ 30 ML VIAL As Ordered ONE; +MIDAZOLAM INJ 2 MG/2 ML VIAL (J2250) As Ordered ONE; +TRIAMCINOLONE ACETONIDE SUSP 40 MG/ML VIAL (J3301) As Ordered ONE; +fentaNYL 100 MCG/2 ML INJECTION (J3010) As Ordered ONE
--- NOTE | 2016-12-13 18:07 | REP ---
FACET BLOCK: The images were reviewed with Dr. Rice. The patient has a history of low back pain. The portable C-ARM was provided in the OR for Dr. Duron for fluoroscopic guidance. 4 intraoperative fluoroscopic spot films were obtained for needle placement verification for bilateral lumbar facet injection. The films are on the PACs system and are available for review. 26 seconds of fluoroscopic time was utilized for this procedure. Reviewed by NERY Montalvo 12/14/2016 09:41 AEdited and Signed by Mat Rice MD 12/14/2016 04:41 P
--- NOTE | 2016-12-18 23:46 | ECWPNPC ---
PATIENT NAME: MIRNA LYNN : 1960 GENDER: FEMALE VISIT DATE: 12/13/2016 DISCHARGE DATE: 12/13/16 1415 VISIT LOCKED DATE TIME: PHYSICIAN: NEGRITO GREEN RESOURCE: NEGRITO GREEN REASON FOR APPOINTMENT 1. LFB W SEDATION HISTORY OF PRESENT ILLNESS HISTORY OF PRESENT ILLNESS: PAIN THE PATIENT DESCRIBES THE PAIN... FALL RISK SCREENING: SCREENING :NO FALLS IN THE PAST YEAR CURRENT MEDICATIONS TAKING WELLBUTRIN XL 100 TABLET EXTENDED RELEASE 24 HOUR 1 TABLET IN THE MORNING ORALLY ONCE A DAY, NOTES: 12-12-161399 TAKING EC-81 ASPIRIN 81 MG TABLET DELAYED RELEASE 1 TABLET ORALLY ONCE A DAY, NOTES: 12-12-161399 TAKING VENTOLIN HFA 90 MCG/ACT AEROSOL SOLUTION 2 PUFFS NEEDED INHALATION EVERY 4 HRS, NOTES: NONE TAKING LEXAPRO 20 20 MG TABLET 1 TAB(S) ORAL DAILY, NOTES: 12-12-161399 TAKING FLUTICASONE PROPIONATE 50 MCG/DOSE SUSPENSION 2 SPRAY IN EACH NOSTRIL NASALLY ONCE A DAY, NOTES: 12-12-161399 TAKING FISH OIL 1000 MG CAPSULE 1 CAPSULE ORALLY ONCE A DAY, NOTES: 12-12-161399 TAKING IBUPROFEN 800 MG TABLET 1 TAB ORAL QID PRN, NOTES: 12-12-162099 TAKING LEVOXYL 125 MCG TABLET 1 TABLET ORALLY ONCE A DAY, NOTES: 12-12-161399 TAKING LISINOPRIL 2.5 MG TABLET 1 TABLET ORALLY ONCE A DAY, NOTES: 12-12-161399 TAKING METFORMIN HCL ER 500 MG TABLET EXTENDED RELEASE 24 HOUR 1 TAB(S) ORALLY BID, NOTES: 12-12-162099 TAKING TOPROL XL 100 MG TABLET EXTENDED RELEASE 1 TABLET ORALLY ONCE A DAY, NOTES: 12-12-161399 TAKING NORTRIPTYLINE HCL 25 MG CAPSULE 1 CAPSULE ORALLY BID, NOTES: 12-12-161399 TAKING MOVANTIK 25 MG TABLET 1 TABLET IN THE MORNING ORALLY ONCE A DAY, NOTES: NONE TAKING PROTONIX 20 MG TABLET DELAYED RELEASE 2 TABLETS ORALLY ONCE A DAY, NOTES: 12-12-161399 TAKING ZANTAC 150 MAXIMUM STRENGTH 150 MG TABLET 1 TABLET ORALLY TWICE A DAY, NOTES: 12-12-16 1500 TAKING MAXALT-PORCELAIN ENAMEL SPRAYER 10 MG TABLET DISPERSIBLE 1 TABLET ON THE TONGUE AND ALLOW TO DISSOLVE NEEDED ONE TIME ORALLY ONCE A DAY, NOTES: NONE TAKING SIMVASTATIN 20 MG TABLET 1 TAB(S) ORALLY ONCE A DAY, NOTES: 12-12-161399 TAKING TIZANIDINE HCL 4 MG TABLET 1-2 TABLET NEEDED ORALLY EVERY 8 HRS, NOTES: 12-12-162099 TAKING TOPAMAX 100 MG TABLET 1 TABLET ORALLY TWICE A DAY, NOTES: 12-12-161399 TAKING VITAMIN D (ERGOCALCIFEROL) 37968 UNIT CAPSULE 1 CAPSULE ORALLY WEEKLY, NOTES: 12-09-16 TAKING MULTIVITAMIN - 1 TAB(S) ORALLY DAILY, NOTES: 12-12-161399 TAKING MAGNESIUM _ TABLET 1 TABLET WITH A MEAL ORALLY ONCE A DAY, NOTES: 12-12-161399 TAKING AMBIEN 10 MG TABLET 1 TABLET AT BEDTIME NEEDED ORALLY ONCE A DAY, NOTES: 12-12-162099 TAKING LIDOCAINE 5 % PATCH 1 PATCH TO INTACT SKIN REMOVE AFTER 12 HOURS EXTERNALLY ONCE A DAY, NOTES: 12-12-162099 TAKING TRAMADOL HCL 50 MG TABLET 1 TABLET ORALLY Q 4 HRUS PRN PAIN MDD=6, NOTES: 12-12-162099 TAKING NORCO 10-325 MG TABLET 1 TABLET NEEDED ORALLY EVERY 6 HRS PRN PAIN MDD=4, NOTES: 12-12-16999 NOT-TAKING ATIVAN 2 MG TABLET 1 TAB(S) ORALLY QID PRN NOT-TAKING PERCOCET 5-325 MG TABLET 1 TABLET NEEDED ORALLY EVERY 6 HRS PRN PAIN MDD=4 NOT-TAKING VALIUM 5 MG TABLET 1 TABLET ORALLY TAKE ON ARRIVAL FOR INJECTION NOT-TAKING VALIUM 10 MG TABLET 1 TABLET ORALLY THREE TIMES DAILY NOT-TAKING TYLENOL ARTHRITIS PAIN 650 MG TABLET EXTENDED RELEASE ORALLY BID PRN NOT-TAKING TRAMADOL HCL 50 MG TABLET 1-2 TABLET ORALLY EVERY 8 PRN PAIN MDD=3 MEDICATION LIST REVIEWED AND RECONCILED WITH THE PATIENT PAST MEDICAL HISTORY SMALL ARTERY DIABETES HTN A FIB HYPOTHYROIDISM FIBROMYALGIA PTSD ANXIETY/DEPRESSION DDD SPINAL STENOSIS ARTHRITIS ELEVATED CHOLESTEROL/TRIGLYCERIDES IBS ALLERGIES SULFA (FOR ALLERGY USE ONLY): RASH, HEADACHE: ALLERGY ENVIRONMENTAL: NASAL DRAINAGE, ITCHY EYES: ALLERGY REVIEW OF SYSTEMS CONSTITUTIONAL: ANY CHANGE IN YOUR MEDICAL CONDITION? NO . CHILLS NO . FEVER NO . INFECTION: DO YOU HAVE NEW INFECTIONS? NO . DO YOU HAVE HISTORY OF MRSA? NO . MUSCULOSKELETAL: ANY NEW PATTERNS OF PAIN OR NUMBNESS? NO . GASTROENTEROLOGY: ANY NEW CHANGE IN BOWEL CONTROL? NO . GENITOURINARY: ANY NEW CHANGE IN BLADDER CONTROL? NO . IS THERE A CHANCE YOU COULD BE ? NO . HEMATOLOGY/LYMPH: DO YOU TAKE ANY BLOOD THINNERS? (FOR EXAMPLE- COUMADIN, PLAVIX, AGGRENOX, PLATEL, PRADAXA, OR XARELTO) NO . WHEN WAS YOUR LAST DOSE? DATE: TIME: . NEUROLOGY: HAVE YOU FALLEN IN THE PAST 6 MONTHS? NO . ANY NEW EXTREMITY NUMBNESS OR WEAKNESS? NO . CARDIOLOGY: DO YOU HAVE A PACEMAKER OR DEFIBRILLATOR? NO . RESPIRATORY: HAVE YOU BEEN SICK IN THE PAST WEEK? NO . FEVER NO . FLU LIKE SYMPTOMS? NO . COUGH NO . INTEGUMENTARY: DO YOU HAVE ANY RASHES OR OPEN SORES? NO . ALLERGIC/IMMUNO: ARE YOU ALLERGIC TO SHELLFISH OR IV DYE? NO . ANY NEW ALLERGIES? NO . PSYCHIATRIC: DO YOU HAVE THOUGHTS OF HURTING YOURSELF OR SOMEONE ELSE? NO . ARE YOU ABUSED, NEGLECTED, OR IN AN UNSAFE ENVIRONMENT? NO . ENDOCRINOLOGY: ARE YOU DIABETIC? YES . OTHER: DO YOU NEED ANY PRESCRIPTIONS? NO . IF YES, PLEASE LIST: ____ . ANY NEW PROBLEMS WITH YOUR MEDICATIONS? NO . WHEN DID YOU LAST EAT? 12-12-16 PM . WHEN DID YOU LAST DRINK? 12-12-16 PM . WHAT DID YOU LAST DRINK? WATER . NAME OF PERSON DRIVING YOU HOME? BRITNI . DO YOU HAVE ANY OTHER QUESTIONS OR CONCERNS NO . REVIEWED BY: PROVIDER: . VITAL SIGNS WT 251.2 LBS, HT 62 IN, BMI 45.94 INDEX, BP 140/75 MM HG, HR 72 /MIN, RR 16 /MIN, TEMP 97.8 F, OXYGEN SAT % 97%, NA INITIALS TL 1109, REVIEWED BY: CM. ASSESSMENTS SPONDYLOSIS WITHOUT MYELOPATHY OR RADICULOPATHY, LUMBAR REGION - M47.816 (PRIMARY) SPONDYLOSIS WITHOUT MYELOPATHY OR RADICULOPATHY, LUMBOSACRAL REGION - M47.817 PROCEDURES PN LUMBAR FACET BLOCK THERAPEUTIC PRE PROCEDURE DIAGNOSIS LUMBAR SPONDYLOSIS, LUMBOSACRAL SPONDYLOSIS POST PROCEDURE DIAGNOSIS LUMBAR SPONDYLOSIS, LUMBOSACRAL SPONDYLOSIS PROCEDURE BILATERAL L4-L5 AND L5-S1 LUMBAR FACET THERAPEUTIC BLOCK SURGEON DR. NEGRITO GREEN HOTEL RECREATIONAL FACILITIES MANAGER NONE ANESTHESIA LOCAL WITH IV SEDATION PRE PROCEDURE NOTE THE PATIENT HAS A HISTORY OF CHRONIC LOW BACK PAIN. I EVALUATE THE PATIENT AND REVIEWED THE CHART. I WENT OVER THE RISKS, ALTERNATIVES, AND BENEFITS ASSOCIATED WITH THIS PROCEDURE. PATIENT WANTS IV SEDATION DUE TO THE DISCOMFORT, PAIN, AND ANXIETY THIS PROCEDURE WILL CAUSE HER. THE PATIENT WOULD LIKE TO PROCEED AND GIVE CONSENT TO PERFORMED THE PROCEDURE WITH IV SEDATION. SHE REPORTS BEING VERY ANXIOUS .THE PATIENT DENIES UNEXPLAINABLE WEIGHT LOSS, FEVER, CHILLS, OR NEW CHANGES IN URINARY OR BOWEL CONTROL DESCRIPTION OF PROCEDURE THE PATIENT WAS BROUGHT TO THE PROCEDURE ROOM AND PLACED IN THE PRONE POSITION. THE LUMBOSACRAL AREA WAS CLEANED WITH CHLORAPREP SOLUTION AND DRAPED ASEPTICALLY. THE PROCEDURE WAS DONE UNDER STERILE CONDITIONS. I CHECKED LATERALITY AND THE LEVEL WHERE THE PROCEDURE WAS GOING TO BE PERFORMED WITH THE PATIENT AND THE SUPPORTING STAFF AT THE MOMENT OF THE TIME OUT IN THE PROCEDURE ROOM. UNDER FLUOROSCOPIC GUIDANCE, THE TARGET POINT WAS SELECTED AT THE RIGHT AND LEFT L4-L5 AND L5-S1 FACET JOINT. TARGET POINT WAS SELECTED AFTER LATERAL ROTATION AND TILT OF THE MAGNIFIER OF THE C-ARM. LIDOCAINE 0.5% WAS USED TO NUMB THE SKIN AND THE SUBCUTANEOUS TISSUE BELOW IT. SPINAL NEEDLES, 22-GAUGE, WERE ADVANCED UNDER FLUOROSCOPIC GUIDANCE AND FOLLOWING PATIENT FEEDBACK UNTIL THE TARGETS WERE TOUCHED. THE POSITION OF THE NEEDLES WAS VERIFIED WITH AP AND LATERAL VIEWS. AFTER PROPER POSITION OF THE NEEDLES WAS ACHIEVED, ISOVUE-M DYE 30% 0.1 ML WAS INJECTED SHOWING ADEQUATE SPREAD OF THE DYE. THEN A SOLUTION OF 1.9 ML OF BUPIVACAINE 0.125% OF KENALOG 10 MG WAS INJECTED AT EACH SITE. PATIENT RECEIVED FENTANYL 50 MCG IV DIVIDED DOSES. FACE TO FACE TIME WAS 14 MINUTES. THERE WAS NO EVIDENCE OF BLOOD, PARESTHESIA OR CEREBROSPINAL FLUID DURING THE PROCEDURE. THE PATIENT WAS SENT TO THE RECOVERY ROOM. THE PATIENT WAS MOVING THE EXTREMITIES AND DOING WELL. THERE WAS NO COMPLICATION DURING THE PROCEDURE. FLUOROSCOPY TIME WAS 26 SECONDS POST PROCEDURE NOTE THE PATIENT WILL BE SEEN IN A FOLLOW UP IN THE NEXT FEW WEEKS. INSTRUCTIONS WERE GIVEN, QUESTIONS WERE ANSWERED, AND THE PATIENT EXPRESSED UNDERSTANDING AND AGREES WITH THE PLAN. I, LASHANDA CONTI, DOCUMENTED THE ABOVE INFORMATION ACTING A SCRIBE FOR DR. GREEN. I HAVE REVIEWED THE ABOVE DOCUMENT, WRITTEN BY LASHANDA CONTI SCRIBJoanne AND I VERIFY THAT IT IS ACCURATE. DIAGNOST[facility] FACET BLOCK (PAIN)[id number] PROCEDURE CODES 95602 INJ PARAVERT F JNT L/S 1 LEV 74994 INJ PARAVERT F JNT L/S 2 LEV 6045F RADXPS IN END [id number] PXD 90962 MOD SED SAME PHYS/QHP 5/>YRS DISPOSITION & COMMUNICATION FOLLOW UP 3 WEEKS ELECTRONICALLY SIGNED BY NEGRITO GREEN MD ON 12/18/2016 AT 05:03 PM EDT DISCLAIMER : THIS IS A VISIT SUMMARY EXTRACTED FROM THE [employer] CHART. IT IS NOT A COPY OF THE [employer] PROGRESS NOTE. MTDD
== END ==
LOC: M PAIN 11:00
PROVIDERS: ATTEND Anesthesiology
DX: G89.29 Other chronic pain (principal); M47.816 Spondylosis without myelopathy or radiculopathy, lumbar region; M47.817 Spondylosis without myelopathy or radiculopathy, lumbosacral region; I73.9 Peripheral vascular disease, unspecified; E11.9 Type 2 diabetes mellitus without complications; I10 Essential (primary) hypertension; I48.91 Unspecified atrial fibrillation; E03.9 Hypothyroidism, unspecified; M79.7 Fibromyalgia; F43.10 Post-traumatic stress disorder, unspecified; F32.9 Major depressive disorder, single episode, unspecified; F43.29 Adjustment disorder with other symptoms; M48.00 Spinal stenosis, site unspecified; M19.90 Unspecified osteoarthritis, unspecified site; E78.00 Pure hypercholesterolemia, unspecified; Z88.2 Allergy status to sulfonamides; J30.89 Other allergic rhinitis; Z79.82 Long term (current) use of aspirin; Z79.84 Long term (current) use of oral hypoglycemic drugs
CPT/HCPCS: 64493; 64494; 99152; J2250; J3010; J3301; Q9967

== ENCOUNTER → 2017-02-20 | Outpatient (CLI) | payer MEDICARE, OTHER ==
[~2017-02-20] MED LIST changes: -BUPIVACAINE HCL 0.25% 30 ML VIAL As Ordered ONE; -ISOVUE-M 300 61% 15ML VIAL (Q9967) As Ordered ONE; -LEVO125T3 PO; +LEVO125T4 PO; -LIDOCAINE 1% SDV INJ 30 ML VIAL As Ordered ONE; -METF500T PO; +METF500T13 PO; -MIDAZOLAM INJ 2 MG/2 ML VIAL (J2250) As Ordered ONE; +TOPA100T12 PO; -TOPA100T8 PO; -TOPA50TA7 PO; +TOPA50TA8 PO; -TRIAMCINOLONE ACETONIDE SUSP 40 MG/ML VIAL (J3301) As Ordered ONE; -fentaNYL 100 MCG/2 ML INJECTION (J3010) As Ordered ONE
--- NOTE | 2017-03-17 01:06 | ECWPNPC ---
PATIENT NAME: MIRNA LYNN : 1960 GENDER: FEMALE VISIT DATE: 02/20/2017 DISCHARGE DATE: 02/20/17 1559 VISIT LOCKED DATE TIME: PHYSICIAN: MICHELLE BELL RESOURCE: MICHELLE BELL REASON FOR APPOINTMENT 1. BACK HISTORY OF PRESENT ILLNESS HISTORY OF PRESENT ILLNESS: PAIN THE PATIENT DESCRIBES THE PAIN... FALL RISK SCREENING: SCREENING :NO FALLS IN THE PAST YEAR TODAY'S VISIT: NOTES: IS S/P BILATERAL LUMBAR FACET BLOCK L5-S1 WHICH PROVIDED SIG PAIN RELIEF FOR 2 FULL MONTHS. WAS ABLE TO TRY CBD WHILE ON VACATION IN [place] (LEGAL SUBSTANCE) WITH MARKED DECREASE IN SWELLING IN JOINTS. PAIN WAS IMPROVED IN LEFT FOOT AND IN LOW BACK. RATES PAIN TODAY 4/10. DESCRIBES PAIN CONSTANT, ACHING, BURNING, TTENDER, THROBBING AND SORE.. CURRENT MEDICATIONS TAKING WELLBUTRIN XL 100 TABLET EXTENDED RELEASE 24 HOUR 1 TABLET IN THE MORNING ORALLY ONCE A DAY TAKING EC-81 ASPIRIN 81 MG TABLET DELAYED RELEASE 1 TABLET ORALLY ONCE A DAY TAKING VENTOLIN HFA 90 MCG/ACT AEROSOL SOLUTION 2 PUFFS NEEDED INHALATION EVERY 4 HRS TAKING LEXAPRO 20 20 MG TABLET 1 TAB(S) ORAL DAILY TAKING FLUTICASONE PROPIONATE 50 MCG/DOSE SUSPENSION 2 SPRAY IN EACH NOSTRIL NASALLY ONCE A DAY TAKING FISH OIL 1000 MG CAPSULE 1 CAPSULE ORALLY ONCE A DAY TAKING IBUPROFEN 800 MG TABLET 1 TAB ORAL QID PRN TAKING LEVOXYL 125 MCG TABLET 1 TABLET ORALLY ONCE A DAY TAKING LISINOPRIL 2.5 MG TABLET 1 TABLET ORALLY ONCE A DAY TAKING METFORMIN HCL ER 500 MG TABLET EXTENDED RELEASE 24 HOUR 1 TAB(S) ORALLY BID TAKING TOPROL XL 100 MG TABLET EXTENDED RELEASE 1 TABLET ORALLY ONCE A DAY TAKING NORTRIPTYLINE HCL 25 MG CAPSULE 1 CAPSULE ORALLY BID TAKING MOVANTIK 25 MG TABLET 1 TABLET IN THE MORNING ORALLY ONCE A DAY, NOTES: NONE TAKING PROTONIX 20 MG TABLET DELAYED RELEASE 2 TABLETS ORALLY ONCE A DAY TAKING ZANTAC 150 MAXIMUM STRENGTH 150 MG TABLET 1 TABLET ORALLY TWICE A DAY TAKING MAXALT-RECORDING STUDIO SET UP WORKER 10 MG TABLET DISPERSIBLE 1 TABLET ON THE TONGUE AND ALLOW TO DISSOLVE NEEDED ONE TIME ORALLY ONCE A DAY TAKING SIMVASTATIN 20 MG TABLET 1 TAB(S) ORALLY ONCE A DAY TAKING TIZANIDINE HCL 4 MG TABLET 1-2 TABLET NEEDED ORALLY EVERY 8 HRS TAKING TOPAMAX 100 MG TABLET 1 TABLET ORALLY TWICE A DAY TAKING VITAMIN D (ERGOCALCIFEROL) 36792 UNIT CAPSULE 1 CAPSULE ORALLY WEEKLY TAKING MULTIVITAMIN - 1 TAB(S) ORALLY DAILY TAKING AMBIEN 10 MG TABLET 1 TABLET AT BEDTIME NEEDED ORALLY ONCE A DAY TAKING LIDOCAINE 5 % PATCH 1 PATCH TO INTACT SKIN REMOVE AFTER 12 HOURS EXTERNALLY ONCE A DAY TAKING TRAMADOL HCL 50 MG TABLET 1 TABLET ORALLY Q 4 HRUS PRN PAIN MDD=6 TAKING NORCO 10-325 MG TABLET 1 TABLET NEEDED ORALLY EVERY 6 HRS PRN PAIN MDD=4 NOT-TAKING MAGNESIUM _ TABLET 1 TABLET WITH A MEAL ORALLY ONCE A DAY NOT-TAKING ATIVAN 2 MG TABLET 1 TAB(S) ORALLY QID PRN NOT-TAKING PERCOCET 5-325 MG TABLET 1 TABLET NEEDED ORALLY EVERY 6 HRS PRN PAIN MDD=4 NOT-TAKING VALIUM 5 MG TABLET 1 TABLET ORALLY TAKE ON ARRIVAL FOR INJECTION NOT-TAKING VALIUM 10 MG TABLET 1 TABLET ORALLY THREE TIMES DAILY NOT-TAKING TYLENOL ARTHRITIS PAIN 650 MG TABLET EXTENDED RELEASE ORALLY BID PRN NOT-TAKING TRAMADOL HCL 50 MG TABLET 1-2 TABLET ORALLY EVERY 8 PRN PAIN MDD=3 MEDICATION LIST REVIEWED AND RECONCILED WITH THE PATIENT PAST MEDICAL HISTORY SMALL ARTERY DIABETES HTN A FIB HYPOTHYROIDISM FIBROMYALGIA PTSD ANXIETY/DEPRESSION DDD SPINAL STENOSIS ARTHRITIS ELEVATED CHOLESTEROL/TRIGLYCERIDES IBS ALLERGIES SULFA (FOR ALLERGY USE ONLY): RASH, HEADACHE: ALLERGY ENVIRONMENTAL: NASAL DRAINAGE, ITCHY EYES: ALLERGY REVIEW OF SYSTEMS REVIEWED BY: PROVIDER: MICHELLE BARRIGA . CONSTITUTIONAL: ANY CHANGE IN YOUR MEDICAL CONDITION? FATTY LIVER / SOMETHING WRONG WITH PANCREAS . CHILLS NO . FEVER NO . INFECTION: DO YOU HAVE NEW INFECTIONS? NO . DO YOU HAVE HISTORY OF MRSA? NO . MUSCULOSKELETAL: ANY NEW PATTERNS OF PAIN OR NUMBNESS? NO . GASTROENTEROLOGY: ANY NEW CHANGE IN BOWEL CONTROL? NO . GENITOURINARY: ANY NEW CHANGE IN BLADDER CONTROL? NO . IS THERE A CHANCE YOU COULD BE ? NO . HEMATOLOGY/LYMPH: DO YOU TAKE ANY BLOOD THINNERS? (FOR EXAMPLE- COUMADIN, PLAVIX, AGGRENOX, PLATEL, PRADAXA, OR XARELTO) NO . WHEN WAS YOUR LAST DOSE? DATE: TIME: . NEUROLOGY: HAVE YOU FALLEN IN THE PAST 6 MONTHS? NO . ANY NEW EXTREMITY NUMBNESS OR WEAKNESS? NO . CARDIOLOGY: DO YOU HAVE A PACEMAKER OR DEFIBRILLATOR? NO . RESPIRATORY: HAVE YOU BEEN SICK IN THE PAST WEEK? NO . FEVER NO . FLU LIKE SYMPTOMS? NO . COUGH NO . INTEGUMENTARY: DO YOU HAVE ANY RASHES OR OPEN SORES? NO . ALLERGIC/IMMUNO: ARE YOU ALLERGIC TO SHELLFISH OR IV DYE? NO . ANY NEW ALLERGIES? NO . PSYCHIATRIC: DO YOU HAVE THOUGHTS OF HURTING YOURSELF OR SOMEONE ELSE? NO . ARE YOU ABUSED, NEGLECTED, OR IN AN UNSAFE ENVIRONMENT? NO . ENDOCRINOLOGY: ARE YOU DIABETIC? YES . OTHER: DO YOU NEED ANY PRESCRIPTIONS? YES . IF YES, PLEASE LIST: HYDROCODONE , TRAMADOL . ANY NEW PROBLEMS WITH YOUR MEDICATIONS? NO . WHEN DID YOU LAST EAT? ____ . WHEN DID YOU LAST DRINK? ____ . WHAT DID YOU LAST DRINK? ____ . NAME OF PERSON DRIVING YOU HOME? ____ . DO YOU HAVE ANY OTHER QUESTIONS OR CONCERNS NO . VITAL SIGNS WT 239.2 LBS, HT 62 IN, BMI 43.75 INDEX, BP 143/95 MM HG, HR 78 /MIN, RR 18 /MIN, TEMP 97.7 F, OXYGEN SAT % 97%, NA INITIALS TL 1447, REVIEWED BY: NL. EXAMINATION GENERAL EXAMINATION: PSYCHALERT , ORIENTED X 3 , APPROPRIATE MOOD AND AFFECT , GOOD EYE CONTACT. LUNGS:CLEAR TO AUSCULTATION BILATERALLY. HEART:HEART RATE REGULAR. MUSCULOSKELETAL:PALPATION: POSITIVE FOR PAIN OVER LUMBAR SPINOUS PROCESSES. TENDERNESS OVER LEFT>RIGHT SIJ., TRIGGER POINTS:, ELICITED WITH PALPATION OVER LUMBAR PARAVERTEBRAL MUSCLES AND INTO THE SACRUM. RESTRICTION OF ROM IN THIS AREA SLOW TO RISE TO STANDING POSITION. POSTURE AND GAIT STIFF.. ASSESSMENTS SPONDYLOSIS WITHOUT MYELOPATHY OR RADICULOPATHY, LUMBAR REGION - M47.816 (PRIMARY) SPONDYLOSIS WITHOUT MYELOPATHY OR RADICULOPATHY, LUMBOSACRAL REGION - M47.817 CHRONIC PRESCRIPTION OPIATE USE - Z79.891 TREATMENT SPONDYLOSIS WITHOUT MYELOPATHY OR RADICULOPATHY, LUMBAR REGION REFILL TRAMADOL HCL TABLET, 50 MG, 1 TABLET, ORALLY, Q 4 HRUS PRN PAIN MDD=6, 30 DAY(S), 180, REFILLS 2 REFILL NORCO TABLET, 10-325 MG, 1 TABLET NEEDED, ORALLY, EVERY 6 HRS PRN PAIN MDD=4, 30 DAY(S), 120, REFILLS 0 INJECTION FACET JOINT/NERVE LUMBAR/SACRALMICHELLE BELL M 02/20/2017 3:32:38 PM > DIAGNOSTIC L4-5, L5-S1 FACET BLOCK NOTES: UTOX TODAY ,FACET JOINT INJECTION MATERIAL WAS PRINTED. CLINICAL NOTES: ISTOP REGISTRY REVIEWED AND DEMNOSTRATES COMPLLIANCE. BRINGS IN MEDICATIONS WHICH IS APPROPRIATE FOR WHAT WAS DISPENSED. RECENT URINE TOXICOLOGY REVIEWED. NO UNAUTHORIZED MEDICATIONS. NO ILLICIT SUBSTANCES AND PRESCRIBED MEDICATIONS WERE PRESENT. PREVENTIVE MEDICINE DISCUSSED DX FACET AND PRE PROCEDURE CARE / PT EXPRESSED UNDERSTANDING. PROCEDURE CODES FA211 ESTABILISHED PATIENT [facility] FACILITY CHARGE [id number] PAIN ASSESS POS TOOL F/U PLAN DOC G8427 DOC MEDS VERIFIED W/PT OR RE DISPOSITION & COMMUNICATION FOLLOW UP AFTER INJECTION (REASON: CHECK AUTH FOR DIAGNOSTIC L4-5 AND L5-S1 BILATERAL FACET BLOCK) ELECTRONICALLY SIGNED BY NANCY COUCH ON 03/16/2017 AT 06:22 PM EDT DISCLAIMER : THIS IS A VISIT SUMMARY EXTRACTED FROM THE [email or web address] CHART. IT IS NOT A COPY OF THE [email or web address] PROGRESS NOTE. YANA
== END ==
LOC: M PAIN 14:40
PROVIDERS: ATTEND Nurse Practitioner Family
DX: G89.29 Other chronic pain (principal); M47.816 Spondylosis without myelopathy or radiculopathy, lumbar region; M47.817 Spondylosis without myelopathy or radiculopathy, lumbosacral region; E11.9 Type 2 diabetes mellitus without complications; I10 Essential (primary) hypertension; E03.9 Hypothyroidism, unspecified; F43.10 Post-traumatic stress disorder, unspecified; F41.9 Anxiety disorder, unspecified; F32.9 Major depressive disorder, single episode, unspecified; M19.90 Unspecified osteoarthritis, unspecified site; E78.00 Pure hypercholesterolemia, unspecified; Z88.2 Allergy status to sulfonamides; J30.89 Other allergic rhinitis; K76.0 Fatty (change of) liver, not elsewhere classified; Z79.82 Long term (current) use of aspirin; Z79.1 Long term (current) use of non-steroidal anti-inflammatories (NSAID); Z79.84 Long term (current) use of oral hypoglycemic drugs; Z79.891 Long term (current) use of opiate analgesic; Z79.899 Other long term (current) drug therapy

== ENCOUNTER → 2017-03-07 | Outpatient (CLI) | payer MEDICARE, OTHER ==
[~2017-03-07] MED LIST changes: +BUPIVACAINE HCL 0.25% 30 ML VIAL As Ordered ONE; +ISOVUE-M 300 61% 15ML VIAL (Q9967) As Ordered ONE; +LIDOCAINE 1% SDV INJ 30 ML VIAL As Ordered ONE
--- NOTE | 2017-03-07 17:35 | REP ---
FACET BLOCK: The images were reviewed with Dr. Rice. The patient has a history of low back pain. The portable C-ARM was provided in the OR for Dr. Duron for fluoroscopic guidance. 2 intraoperative fluoroscopic spot films were obtained for needle placement verification for bilateral lumbar facet injection. The films are on the PACs system and are available for review. 21 seconds of fluoroscopic time was utilized for this procedure. Reviewed by NERY Montalvo 03/08/2017 01:41 PEdited and Signed by Mat Rice MD 03/09/2017 05:38 P
--- NOTE | 2017-03-23 00:16 | ECWPNPC ---
PATIENT NAME: MIRNA LYNN : 1960 GENDER: FEMALE VISIT DATE: 03/07/2017 DISCHARGE DATE: 03/07/17 1237 VISIT LOCKED DATE TIME: PHYSICIAN: NEGRITO GREEN RESOURCE: NEGRITO GREEN REASON FOR APPOINTMENT 1. DIAGNOSTIC L4-5 AND L5-S1 BILATERAL FACET BLOCK HISTORY OF PRESENT ILLNESS HISTORY OF PRESENT ILLNESS: PAIN THE PATIENT DESCRIBES THE PAIN... FALL RISK SCREENING: SCREENING :NO FALLS IN THE PAST YEAR CURRENT MEDICATIONS TAKING TRAMADOL HCL 50 MG TABLET 1 TABLET ORALLY Q 4 HRUS PRN PAIN MDD=6, NOTES: 2200 03/06/17 TAKING NORCO 10-325 MG TABLET 1 TABLET NEEDED ORALLY EVERY 6 HRS PRN PAIN MDD=4, NOTES: 1100 03/06/17 TAKING WELLBUTRIN XL 100 TABLET EXTENDED RELEASE 24 HOUR 1 TABLET IN THE MORNING ORALLY ONCE A DAY, NOTES: 139903/06/17 TAKING EC-81 ASPIRIN 81 MG TABLET DELAYED RELEASE 1 TABLET ORALLY ONCE A DAY, NOTES: 139903/06/17 TAKING VENTOLIN HFA 90 MCG/ACT AEROSOL SOLUTION 2 PUFFS NEEDED INHALATION EVERY 4 HRS, NOTES: AWHILE TAKING LEXAPRO 20 20 MG TABLET 1 TAB(S) ORAL DAILY, NOTES: TAKING FLUTICASONE PROPIONATE 50 MCG/DOSE SUSPENSION 2 SPRAY IN EACH NOSTRIL NASALLY ONCE A DAY, NOTES: AWHILE TAKING FISH OIL 1000 MG CAPSULE 1 CAPSULE ORALLY ONCE A DAY, NOTES: 8PM 03/06/17 TAKING IBUPROFEN 800 MG TABLET 1 TAB ORAL QID PRN, NOTES: 2 DAYS AGO TAKING LEVOXYL 125 MCG TABLET 1 TABLET ORALLY ONCE A DAY, NOTES: 139903/06/17 TAKING LISINOPRIL 2.5 MG TABLET 1 TABLET ORALLY ONCE A DAY, NOTES: 139903/06/17 TAKING METFORMIN HCL ER 500 MG TABLET EXTENDED RELEASE 24 HOUR 1 TAB(S) ORALLY BID, NOTES: 139903/06/17 TAKING TOPROL XL 100 MG TABLET EXTENDED RELEASE 1 TABLET ORALLY ONCE A DAY, NOTES: 139903/06/17 TAKING NORTRIPTYLINE HCL 25 MG CAPSULE 1 CAPSULE ORALLY BID, NOTES: 139903/06/17 TAKING MOVANTIK 25 MG TABLET 1 TABLET IN THE MORNING ORALLY ONCE A DAY, NOTES: NONE TAKING PROTONIX 20 MG TABLET DELAYED RELEASE 2 TABLETS ORALLY ONCE A DAY, NOTES: 139903/06/17 TAKING ZANTAC 150 MAXIMUM STRENGTH 150 MG TABLET 1 TABLET ORALLY TWICE A DAY, NOTES: 139903/06/17 TAKING MAXALT-MANAGER SAFE 10 MG TABLET DISPERSIBLE 1 TABLET ON THE TONGUE AND ALLOW TO DISSOLVE NEEDED ONE TIME ORALLY ONCE A DAY, NOTES: NOT LATELY TAKING SIMVASTATIN 20 MG TABLET 1 TAB(S) ORALLY ONCE A DAY, NOTES: 1399 TAKING TIZANIDINE HCL 4 MG TABLET 1-2 TABLET NEEDED ORALLY EVERY 8 HRS, NOTES: 219903/06/17 TAKING TOPAMAX 100 MG TABLET 1 TABLET ORALLY TWICE A DAY, NOTES: 139903/06/17 TAKING VITAMIN D (ERGOCALCIFEROL) 50736 UNIT CAPSULE 1 CAPSULE ORALLY WEEKLY, NOTES: SAT TAKING MULTIVITAMIN - 1 TAB(S) ORALLY DAILY, NOTES: 219903/06/17 TAKING AMBIEN 10 MG TABLET 1 TABLET AT BEDTIME NEEDED ORALLY ONCE A DAY, NOTES: 229903/06/17 TAKING LIDOCAINE 5 % PATCH 1 PATCH TO INTACT SKIN REMOVE AFTER 12 HOURS EXTERNALLY ONCE A DAY, NOTES: 2 WEEKS AGO TAKING ATIVAN 2 MG TABLET 1 TAB(S) ORALLY QID PRN, NOTES: 229903/06/17 NOT-TAKING MAGNESIUM _ TABLET 1 TABLET WITH A MEAL ORALLY ONCE A DAY NOT-TAKING PERCOCET 5-325 MG TABLET 1 TABLET NEEDED ORALLY EVERY 6 HRS PRN PAIN MDD=4 NOT-TAKING VALIUM 5 MG TABLET 1 TABLET ORALLY TAKE ON ARRIVAL FOR INJECTION NOT-TAKING VALIUM 10 MG TABLET 1 TABLET ORALLY THREE TIMES DAILY NOT-TAKING TYLENOL ARTHRITIS PAIN 650 MG TABLET EXTENDED RELEASE ORALLY BID PRN NOT-TAKING TRAMADOL HCL 50 MG TABLET 1-2 TABLET ORALLY EVERY 8 PRN PAIN MDD=3 MEDICATION LIST REVIEWED AND RECONCILED WITH THE PATIENT PAST MEDICAL HISTORY SMALL ARTERY DIABETES HTN A FIB HYPOTHYROIDISM FIBROMYALGIA PTSD ANXIETY/DEPRESSION DDD SPINAL STENOSIS ARTHRITIS ELEVATED CHOLESTEROL/TRIGLYCERIDES IBS ALLERGIES SULFA (FOR ALLERGY USE ONLY): RASH, HEADACHE: ALLERGY ENVIRONMENTAL: NASAL DRAINAGE, ITCHY EYES: ALLERGY SURGICAL HISTORY C SECTION 08/17/1978 C SECTION 09/06/1981 CSECTION 09/21/87 C SECTION 12/26/1988 TONCILECTOMY 06/1977 D&C 07/1983 REVIEW OF SYSTEMS REVIEWED BY: PROVIDER: . CONSTITUTIONAL: ANY CHANGE IN YOUR MEDICAL CONDITION? NO . CHILLS NO . FEVER NO . INFECTION: DO YOU HAVE NEW INFECTIONS? NO . DO YOU HAVE HISTORY OF MRSA? NO . MUSCULOSKELETAL: ANY NEW PATTERNS OF PAIN OR NUMBNESS? NO . GASTROENTEROLOGY: ANY NEW CHANGE IN BOWEL CONTROL? NO . GENITOURINARY: ANY NEW CHANGE IN BLADDER CONTROL? NO . IS THERE A CHANCE YOU COULD BE ? NO . HEMATOLOGY/LYMPH: DO YOU TAKE ANY BLOOD THINNERS? (FOR EXAMPLE- COUMADIN, PLAVIX, AGGRENOX, PLATEL, PRADAXA, OR XARELTO) NO . WHEN WAS YOUR LAST DOSE? DATE: TIME: . NEUROLOGY: HAVE YOU FALLEN IN THE PAST 6 MONTHS? NO . ANY NEW EXTREMITY NUMBNESS OR WEAKNESS? NO . CARDIOLOGY: DO YOU HAVE A PACEMAKER OR DEFIBRILLATOR? NO . RESPIRATORY: HAVE YOU BEEN SICK IN THE PAST WEEK? NO . FEVER NO . FLU LIKE SYMPTOMS? NO . COUGH NO . INTEGUMENTARY: DO YOU HAVE ANY RASHES OR OPEN SORES? NO . ALLERGIC/IMMUNO: ARE YOU ALLERGIC TO SHELLFISH OR IV DYE? NO . ANY NEW ALLERGIES? NO . PSYCHIATRIC: DO YOU HAVE THOUGHTS OF HURTING YOURSELF OR SOMEONE ELSE? NO . ARE YOU ABUSED, NEGLECTED, OR IN AN UNSAFE ENVIRONMENT? NO . ENDOCRINOLOGY: ARE YOU DIABETIC? NO . OTHER: DO YOU NEED ANY PRESCRIPTIONS? NO . IF YES, PLEASE LIST: ____ . ANY NEW PROBLEMS WITH YOUR MEDICATIONS? NO . WHEN DID YOU LAST EAT? LAST NIGHT . WHEN DID YOU LAST DRINK? 0900 TODAY . WHAT DID YOU LAST DRINK? WATER . NAME OF PERSON DRIVING YOU HOME? BRITNI . DO YOU HAVE ANY OTHER QUESTIONS OR CONCERNS NO . VITAL SIGNS WT 239.0 LBS, HT 62 IN, BMI 43.71 INDEX, BP 129/64 MM HG, HR 53 /MIN, RR 16 /MIN, TEMP 98.4 F, OXYGEN SAT % 98%, NA INITIALS TL 1056, REVIEWED BY: NL. ASSESSMENTS SPONDYLOSIS WITHOUT MYELOPATHY OR RADICULOPATHY, LUMBAR REGION - M47.816 (PRIMARY) SPONDYLOSIS WITHOUT MYELOPATHY OR RADICULOPATHY, LUMBOSACRAL REGION - M47.817 PROCEDURES PN LUMBAR FACET BLOCK DIAGNOSTIC PRE PROCEDURE DIAGNOSIS LUMBAR SPONDYLOSIS, LUMBOSACRAL SPONDYLOSIS POST PROCEDURE DIAGNOSIS LUMBAR SPONDYLOSIS, LUMBOSACRAL SPONDYLOSIS PROCEDURE BILATERAL L4-L5 AND BILATERAL L5-S1 FACET BLOCK DIAGNOSTIC NUMBER [address] NEGRITO GREEN FABRICATOR SPECIAL ITEMS NONE ANESTHESIA LOCAL PRE PROCEDURE NOTE THE PATIENT WITH HISTORY OF CHRONIC LOW BACK PAIN. I EVALUATED THE PATIENT AND REVIEWED THE CHART. I WENT OVER THE RISKS, ALTERNATIVES, AND BENEFITS ASSOCIATED WITH THIS PROCEDURE. THE PATIENT WOULD LIKE TO PROCEED AND GAVE CONSENT TO PERFORM THE PROCEDURE. AGREED WITH THE PATIENT WE ARE DOING THIS PROCEDURE TO DETERMINE IF THE PATIENT IS A CANDIDATE FOR A RADIOFREQUENCY ABLATION OF THE FACETS JOINTS. THE PATIENT DENIES UNEXPLAINABLE WEIGHT LOSS, FEVER, CHILLS, OR NEW CHANGES IN URINARY OR BOWEL CONTROL DESCRIPTION OF PROCEDURE THE PATIENT WAS BROUGHT TO THE PROCEDURE ROOM AND PLACED IN THE PRONE POSITION. THE LUMBOSACRAL AREA WAS CLEANED WITH CHLORAPREP SOLUTION AND DRAPED ASEPTICALLY. THE PROCEDURE WAS DONE UNDER STERILE CONDITIONS. I CHECKED LATERALITY AND THE LEVEL WHERE THE PROCEDURE WAS GOING TO BE PERFORMED WITH THE PATIENT AND THE SUPPORTING STAFF AT THE MOMENT OF THE TIME OUT IN THE PROCEDURE ROOM. UNDER FLUOROSCOPIC GUIDANCE, TARGETS WERE SELECTED AT THE INTERSECTION OF THE RIGHT AND LEFT TRANSVERSE PROCESS OF L4, L5 AND ALA OF S1 WITH ITS RESPECTIVE SUPERIOR ARTICULAR PROCESS. LIDOCAINE WAS USED TO NUMB THE SKIN AND THE SUBCUTANEOUS TISSUE BELOW IT. SPINAL NEEDLE, 22-GAUGE WAS ADVANCED UNDER FLUOROSCOPIC GUIDANCE AND FOLLOWING PATIENT FEEDBACK UNTIL THE TARGETS WERE REACHED. POSITION OF THE NEEDLES WAS VERIFIED WITH AP AND LATERAL VIEWS. AFTER PROPER POSITION OF THE NEEDLES WAS ACHIEVED, ISOVUE-M DYE 30% 0.1 ML WAS INJECTED AT EACH SITE SHOWING ADEQUATE SPREAD OF THE DYE. THEN A SOLUTION OF 0.4 ML OF BUPIVACAINE 0.25% WAS INJECTED AT EACH SITE. THERE WAS NO EVIDENCE OF BLOOD, PARESTHESIA OR CEREBROSPINAL FLUID DURING THE PROCEDURE. THE PATIENT WAS SENT TO THE RECOVERY ROOM. THE PATIENT WAS MOVING THE EXTREMITIES AND DOING WELL. THERE WAS NO COMPLICATION DURING THE PROCEDURE. FLUOROSCOPY TIME WAS 21 SECONDS POST PROCEDURE NOTE THE PATIENT WILL DOCUMENT HIS PAIN LEVEL AND RESPONSE TO THIS PROCEDURE EVERY 30 MINUTES. THE PATIENT WILL BE SEEN IN A FOLLOW UP IN THE NEXT FEW WEEKS. FURTHER DETERMINATION FOR HIS CASE WILL BE DONE AT THE NEXT VISIT. INSTRUCTIONS WERE GIVEN, QUESTIONS WERE ANSWERED, AND THE PATIENT EXPRESSED UNDERSTANDING AND AGREED WITH THE PLAN. I, ALEXI MARTEL, DOCUMENTED THE ABOVE INFORMATION ACTING A SCRIBE FOR DR. GREEN. I HAVE REVIEWED THE ABOVE DOCUMENT, WRITTEN BY ALEXI KLEIN AND I VERIFY THAT IT IS ACCURATE DIAGNOSTIC IMAGING [facility] FACET BLOCK (PAIN)[id number] PROCEDURE CODES 67738 INJ PARAVERT F JNT L/S 1 LEV 49160 INJ PARAVERT F JNT L/S 2 LEV 6045F RADXPS IN END [id number] PXD DISPOSITION & COMMUNICATION FOLLOW UP 3 WEEKS ELECTRONICALLY SIGNED BY NEGRITO GREEN MD ON 03/21/2017 AT 11:07 PM EDT DISCLAIMER : THIS IS A VISIT SUMMARY EXTRACTED FROM THE [facility] [facility] CHART. IT IS NOT A COPY OF THE [facility] PROGRESS NOTE. MTDD
== END ==
LOC: M PAIN 11:00
PROVIDERS: ATTEND Anesthesiology
DX: G89.29 Other chronic pain (principal); M47.816 Spondylosis without myelopathy or radiculopathy, lumbar region; M47.817 Spondylosis without myelopathy or radiculopathy, lumbosacral region; E11.9 Type 2 diabetes mellitus without complications; I10 Essential (primary) hypertension; E03.9 Hypothyroidism, unspecified; F43.10 Post-traumatic stress disorder, unspecified; F41.9 Anxiety disorder, unspecified; F32.9 Major depressive disorder, single episode, unspecified; M19.90 Unspecified osteoarthritis, unspecified site; E78.00 Pure hypercholesterolemia, unspecified; Z88.2 Allergy status to sulfonamides; J30.89 Other allergic rhinitis; Z79.891 Long term (current) use of opiate analgesic; Z79.82 Long term (current) use of aspirin; Z79.84 Long term (current) use of oral hypoglycemic drugs; Z79.899 Other long term (current) drug therapy
CPT/HCPCS: 64493; 64494; Q9967

== ENCOUNTER → 2017-04-07 | Outpatient (CLI) | payer MEDICARE, OTHER ==
[~2017-04-07] MED LIST changes: -BUPIVACAINE HCL 0.25% 30 ML VIAL As Ordered ONE; -ISOVUE-M 300 61% 15ML VIAL (Q9967) As Ordered ONE; -LIDOCAINE 1% SDV INJ 30 ML VIAL As Ordered ONE
--- NOTE | 2017-04-16 23:20 | ECWPNPC ---
PATIENT NAME: MIRNA LYNN : 1960 GENDER: FEMALE VISIT DATE: 04/07/2017 DISCHARGE DATE: 04/07/17 1529 VISIT LOCKED DATE TIME: PHYSICIAN: MICHELLE BELL RESOURCE: MICHELLE BELL REASON FOR APPOINTMENT 1. POST FACET HISTORY OF PRESENT ILLNESS HISTORY OF PRESENT ILLNESS: PAIN THE PATIENT DESCRIBES THE PAIN... FALL RISK SCREENING: SCREENING :NO FALLS IN THE PAST YEAR TODAY'S VISIT: NOTES: RATES PAIN TODAY 02/20. SAW DR REEDER WHO MADE SOME MED CHANGES. SAW DR LONDON AT RHEUMATOLOGY. HE IS ORDERING XRAYS AND NEW BLOODWORK. HE ALSO STARTED HER ON A NEW MED. HAD DIAGNOSTIC LUMBAR FACET BLOCK COMPLETED ON 03/07/17. HAD PAIN RELIEF OF PAIN FROM 02/20 TO -11/21 WITH THE LEFT SIDE THE BEST AND THIS HAS CONTINUED TO HAVE SOME RELIEF. . CURRENT MEDICATIONS TAKING TRAMADOL HCL 50 MG TABLET 1 TABLET ORALLY Q 4 HRUS PRN PAIN MDD=6 TAKING NORCO 10-325 MG TABLET 1 TABLET NEEDED ORALLY EVERY 6 HRS PRN PAIN MDD=4 TAKING WELLBUTRIN XL 100 TABLET EXTENDED RELEASE 24 HOUR 1 TABLET IN THE MORNING ORALLY ONCE A DAY TAKING EC-81 ASPIRIN 81 MG TABLET DELAYED RELEASE 1 TABLET ORALLY ONCE A DAY TAKING VENTOLIN HFA 90 MCG/ACT AEROSOL SOLUTION 2 PUFFS NEEDED INHALATION EVERY 4 HRS TAKING LEXAPRO 20 20 MG TABLET 1 TAB(S) ORAL DAILY TAKING FLUTICASONE PROPIONATE 50 MCG/DOSE SUSPENSION 2 SPRAY IN EACH NOSTRIL NASALLY ONCE A DAY TAKING FISH OIL 1000 MG CAPSULE 1 CAPSULE ORALLY ONCE A DAY TAKING IBUPROFEN 800 MG TABLET 1 TAB ORAL QID PRN TAKING LEVOXYL 125 MCG TABLET 1 TABLET ORALLY ONCE A DAY TAKING LISINOPRIL 2.5 MG TABLET 1 TABLET ORALLY ONCE A DAY TAKING METFORMIN HCL ER 500 MG TABLET EXTENDED RELEASE 24 HOUR 1 TAB(S) ORALLY BID TAKING TOPROL XL 100 MG TABLET EXTENDED RELEASE 1 TABLET ORALLY ONCE A DAY TAKING NORTRIPTYLINE HCL 25 MG CAPSULE 1 CAPSULE ORALLY BID TAKING MOVANTIK 25 MG TABLET 1 TABLET IN THE MORNING ORALLY ONCE A DAY TAKING PROTONIX 20 MG TABLET DELAYED RELEASE 2 TABLETS ORALLY ONCE A DAY TAKING ZANTAC 150 MAXIMUM STRENGTH 150 MG TABLET 1 TABLET ORALLY TWICE A DAY TAKING MAXALT-HELMET HAT BRIM CUTTER 10 MG TABLET DISPERSIBLE 1 TABLET ON THE TONGUE AND ALLOW TO DISSOLVE NEEDED ONE TIME ORALLY ONCE A DAY TAKING SIMVASTATIN 20 MG TABLET 1 TAB(S) ORALLY ONCE A DAY TAKING TIZANIDINE HCL 4 MG TABLET 1-2 TABLET NEEDED ORALLY EVERY 8 HRS TAKING TOPAMAX 100 MG TABLET 1 TABLET ORALLY TWICE A DAY TAKING VITAMIN D (ERGOCALCIFEROL) 77124 UNIT CAPSULE 1 CAPSULE ORALLY WEEKLY TAKING MULTIVITAMIN - 1 TAB(S) ORALLY DAILY TAKING AMBIEN 10 MG TABLET 1 TABLET AT BEDTIME NEEDED ORALLY ONCE A DAY TAKING LIDOCAINE 5 % PATCH 1 PATCH TO INTACT SKIN REMOVE AFTER 12 HOURS EXTERNALLY ONCE A DAY TAKING ATIVAN 2 MG TABLET 2 TAB(S) ORALLY QID PRN TAKING ABILIFY 2 MG TABLET 1 TABLET ORALLY ONCE A DAY TAKING HYDROXYCHLOROQUINE SULFATE 200 MG TABLET 1 TABLET WITH FOOD OR MILK ORALLY BID NOT-TAKING MAGNESIUM _ TABLET 1 TABLET WITH A MEAL ORALLY ONCE A DAY NOT-TAKING PERCOCET 5-325 MG TABLET 1 TABLET NEEDED ORALLY EVERY 6 HRS PRN PAIN MDD=4 NOT-TAKING VALIUM 5 MG TABLET 1 TABLET ORALLY TAKE ON ARRIVAL FOR INJECTION NOT-TAKING VALIUM 10 MG TABLET 1 TABLET ORALLY THREE TIMES DAILY NOT-TAKING TYLENOL ARTHRITIS PAIN 650 MG TABLET EXTENDED RELEASE ORALLY BID PRN NOT-TAKING TRAMADOL HCL 50 MG TABLET 1-2 TABLET ORALLY EVERY 8 PRN PAIN MDD=3 MEDICATION LIST REVIEWED AND RECONCILED WITH THE PATIENT PAST MEDICAL HISTORY SMALL ARTERY DIABETES HTN A FIB HYPOTHYROIDISM FIBROMYALGIA PTSD ANXIETY/DEPRESSION DDD SPINAL STENOSIS ARTHRITIS ELEVATED CHOLESTEROL/TRIGLYCERIDES IBS ALLERGIES SULFA (FOR ALLERGY USE ONLY): RASH, HEADACHE: ALLERGY ENVIRONMENTAL: NASAL DRAINAGE, ITCHY EYES: ALLERGY SURGICAL HISTORY C SECTION 08/17/1978 C SECTION 09/06/1981 CSECTION 09/21/87 C SECTION 12/26/1988 TONCILECTOMY 06/1977 D&C X2 07/1983 REVIEW OF SYSTEMS REVIEWED BY: PROVIDER: MICHELLE BARRIGA . CONSTITUTIONAL: ANY CHANGE IN YOUR MEDICAL CONDITION? NO . CHILLS NO . FEVER NO . INFECTION: DO YOU HAVE NEW INFECTIONS? NO . DO YOU HAVE HISTORY OF MRSA? NO . MUSCULOSKELETAL: ANY NEW PATTERNS OF PAIN OR NUMBNESS? NO . GASTROENTEROLOGY: ANY NEW CHANGE IN BOWEL CONTROL? NO . GENITOURINARY: ANY NEW CHANGE IN BLADDER CONTROL? NO . IS THERE A CHANCE YOU COULD BE ? NO . HEMATOLOGY/LYMPH: DO YOU TAKE ANY BLOOD THINNERS? (FOR EXAMPLE- COUMADIN, PLAVIX, AGGRENOX, PLATEL, PRADAXA, OR XARELTO) NO . WHEN WAS YOUR LAST DOSE? DATE: TIME: . NEUROLOGY: HAVE YOU FALLEN IN THE PAST 6 MONTHS? NO . ANY NEW EXTREMITY NUMBNESS OR WEAKNESS? NO . CARDIOLOGY: DO YOU HAVE A PACEMAKER OR DEFIBRILLATOR? NO . RESPIRATORY: HAVE YOU BEEN SICK IN THE PAST WEEK? NO . FEVER NO . FLU LIKE SYMPTOMS? NO . COUGH NO . INTEGUMENTARY: DO YOU HAVE ANY RASHES OR OPEN SORES? NO . ALLERGIC/IMMUNO: ARE YOU ALLERGIC TO SHELLFISH OR IV DYE? NO . ANY NEW ALLERGIES? NO . PSYCHIATRIC: DO YOU HAVE THOUGHTS OF HURTING YOURSELF OR SOMEONE ELSE? NO . ARE YOU ABUSED, NEGLECTED, OR IN AN UNSAFE ENVIRONMENT? NO . ENDOCRINOLOGY: ARE YOU DIABETIC? YES . OTHER: DO YOU NEED ANY PRESCRIPTIONS? YES, HYDROCODONE . IF YES, PLEASE LIST: ____ . ANY NEW PROBLEMS WITH YOUR MEDICATIONS? NO . WHEN DID YOU LAST EAT? ____ . WHEN DID YOU LAST DRINK? ____ . WHAT DID YOU LAST DRINK? ____ . NAME OF PERSON DRIVING YOU HOME? ____ . DO YOU HAVE ANY OTHER QUESTIONS OR CONCERNS NO . VITAL SIGNS WT 238 LBS, HT 62 IN, BMI 43.53 INDEX, BP 146/80 MM HG, HR 70 /MIN, RR 16 /MIN, TEMP 98.3 F, OXYGEN SAT % 96%, NA INITIALS AW 1353, REVIEWED BY: EM. EXAMINATION GENERAL EXAMINATION: PSYCHALERT , ORIENTED X 3 , APPROPRIATE MOOD AND AFFECT , GOOD EYE CONTACT. LUNGS:CLEAR TO AUSCULTATION BILATERALLY. HEART:HEART RATE REGULAR. MUSCULOSKELETAL:PALPATION: POSITIVE FOR PAIN OVER LUMBAR SPINOUS PROCESSES. TENDERNESS OVER LEFT>RIGHT SIJ., TRIGGER POINTS:, ELICITED WITH PALPATION OVER LUMBAR PARAVERTEBRAL MUSCLES AND INTO THE SACRUM. RESTRICTION OF ROM IN THIS AREA SLOW TO RISE TO STANDING POSITION. POSTURE AND GAIT STIFF.. ASSESSMENTS SPONDYLOSIS WITHOUT MYELOPATHY OR RADICULOPATHY, LUMBAR REGION - M47.816 (PRIMARY) SPONDYLOSIS WITHOUT MYELOPATHY OR RADICULOPATHY, LUMBOSACRAL REGION - M47.817 CHRONIC PRESCRIPTION OPIATE USE - Z79.891 TREATMENT SPONDYLOSIS WITHOUT MYELOPATHY OR RADICULOPATHY, LUMBAR REGION REFILL NORCO TABLET, 10-325 MG, 1 TABLET NEEDED, ORALLY, EVERY 6 HRS PRN PAIN MDD=4, 30 DAY(S), 120, REFILLS 0 INJECTION FACET JOINT/NERVE LUMBAR/SACRALMICHELLE BELL 04/07/2017 3:05:05 PM > RIGHT DIAGNOSTIC #2 NOTES: CONTINUE CURRENT MEDSUTOX TODAYNO DIABETES MEDS AM OF PROCEDURE.CHECK ON PLCQUENIL . NO PAIN MEDS AM OF PROCEDURE. CLINICAL NOTES: ISTOP REGISTRY REVIEWED AND DEMNOSTRATES COMPLLIANCE. BRINGS IN MEDICATIONS WHICH IS APPROPRIATE FOR WHAT WAS DISPENSED. RECENT URINE TOXICOLOGY REVIEWED. NO UNAUTHORIZED MEDICATIONS. NO ILLICIT SUBSTANCES AND PRESCRIBED MEDICATIONS WERE PRESENT. PROCEDURE CODES FA211 ESTABILISHED PATIENT [facility] FACILITY CHARGE G8730 PAIN ASSESS POS TOOL F/U PLAN DOC G8427 DOC MEDS VERIFIED W/PT OR RE DISPOSITION & COMMUNICATION FOLLOW UP AFTER PROCEDURE (REASON: CHECK AUTH FOR DIAGNOSTIC LUMBAR FACET BLOCK #2 RIGHT SIDE.) ELECTRONICALLY SIGNED BY NANCY COUCH ON 04/16/2017 AT 04:30 PM EDT DISCLAIMER : THIS IS A VISIT SUMMARY EXTRACTED FROM THE [facility] CHART. IT IS NOT A COPY OF THE [facility] PROGRESS NOTE. MTDD
== END ==
LOC: M PAIN 14:00
PROVIDERS: ATTEND Nurse Practitioner Family
DX: G89.29 Other chronic pain (principal); M47.816 Spondylosis without myelopathy or radiculopathy, lumbar region; M47.817 Spondylosis without myelopathy or radiculopathy, lumbosacral region; E11.9 Type 2 diabetes mellitus without complications; I10 Essential (primary) hypertension; E03.9 Hypothyroidism, unspecified; F43.10 Post-traumatic stress disorder, unspecified; F41.9 Anxiety disorder, unspecified; F31.9 Bipolar disorder, unspecified; M19.90 Unspecified osteoarthritis, unspecified site; Z88.2 Allergy status to sulfonamides; J30.89 Other allergic rhinitis; Z79.891 Long term (current) use of opiate analgesic; Z79.82 Long term (current) use of aspirin; Z79.1 Long term (current) use of non-steroidal anti-inflammatories (NSAID); Z79.84 Long term (current) use of oral hypoglycemic drugs; Z79.899 Other long term (current) drug therapy

== ENCOUNTER → 2017-05-10 | Outpatient (CLI) | payer MEDICARE, OTHER ==
--- NOTE | 2017-06-10 00:37 | ECWPNPC ---
PATIENT NAME: MIRNA LYNN : 1960 GENDER: FEMALE VISIT DATE: 05/10/2017 DISCHARGE DATE: 05/10/17 1434 VISIT LOCKED DATE TIME: PHYSICIAN: MICHELLE BELL RESOURCE: MICHELLE BELL REASON FOR APPOINTMENT 1. POST DIAG FACET #2 HISTORY OF PRESENT ILLNESS HISTORY OF PRESENT ILLNESS: PAIN THE PATIENT DESCRIBES THE PAIN... FALL RISK SCREENING: SCREENING :NO FALLS IN THE PAST YEAR TODAY'S VISIT: NOTES: RATES PAIN LEVEL TODAY 3/10. NOTES HER PAIN MEDS ARE NOT WORKING WELL THEY DID PREVIOUSLY. NOTES TIZANIDINE IS HELPFUL. HAS DISCUSSED INJECTIONS AND THE DDORSAL COLUMN STIMULATOR WITH DR GO AND SHE WANTS TO MOVE TO THE [facility] THESE OTHER STEPS ARE TOO PAINFUL AND TOO TEMPORARY. . CURRENT MEDICATIONS TAKING TRAMADOL HCL 50 MG TABLET 1 TABLET ORALLY Q 4 HRUS PRN PAIN MDD=6 TAKING WELLBUTRIN XL 100 TABLET EXTENDED RELEASE 24 HOUR 1 TABLET IN THE MORNING ORALLY ONCE A DAY TAKING EC-81 ASPIRIN 81 MG TABLET DELAYED RELEASE 1 TABLET ORALLY ONCE A DAY TAKING VENTOLIN HFA 90 MCG/ACT AEROSOL SOLUTION 2 PUFFS NEEDED INHALATION EVERY 4 HRS TAKING LEXAPRO 20 20 MG TABLET 1 TAB(S) ORAL DAILY TAKING FLUTICASONE PROPIONATE 50 MCG/DOSE SUSPENSION 2 SPRAY IN EACH NOSTRIL NASALLY ONCE A DAY TAKING FISH OIL 1000 MG CAPSULE 1 CAPSULE ORALLY ONCE A DAY TAKING IBUPROFEN 800 MG TABLET 1 TAB ORAL QID PRN TAKING LEVOXYL 125 MCG TABLET 1 TABLET ORALLY ONCE A DAY TAKING LISINOPRIL 2.5 MG TABLET 1 TABLET ORALLY ONCE A DAY TAKING METFORMIN HCL ER 500 MG TABLET EXTENDED RELEASE 24 HOUR 1 TAB(S) ORALLY BID TAKING TOPROL XL 100 MG TABLET EXTENDED RELEASE 1 TABLET ORALLY ONCE A DAY TAKING PROTONIX 20 MG TABLET DELAYED RELEASE 1 TAB ORALLY ONCE A DAY TAKING ZANTAC 150 MAXIMUM STRENGTH 150 MG TABLET 1 TABLET ORALLY TWICE A DAY TAKING MAXALT-RUBY ON RAILS SOFTWARE DEVELOPER 10 MG TABLET DISPERSIBLE 1 TABLET ON THE TONGUE AND ALLOW TO DISSOLVE NEEDED ONE TIME ORALLY ONCE A DAY TAKING SIMVASTATIN 20 MG TABLET 1 TAB(S) ORALLY ONCE A DAY TAKING TIZANIDINE HCL 4 MG TABLET 1-2 TABLET NEEDED ORALLY EVERY 8 HRS TAKING TOPAMAX 100 MG TABLET 1 TABLET ORALLY TWICE A DAY TAKING VITAMIN D (ERGOCALCIFEROL) 15064 UNIT CAPSULE 1 CAPSULE ORALLY WEEKLY TAKING MULTIVITAMIN - 1 TAB(S) ORALLY DAILY TAKING AMBIEN 10 MG TABLET 1 TABLET AT BEDTIME NEEDED ORALLY ONCE A DAY TAKING LIDOCAINE 5 % PATCH 1 PATCH TO INTACT SKIN REMOVE AFTER 12 HOURS EXTERNALLY ONCE A DAY TAKING ATIVAN 2 MG TABLET 2 TAB(S) ORALLY UP TO 14 MG PER 24 HOURS TAKING ABILIFY 2 MG TABLET 1 TABLET ORALLY ONCE A DAY TAKING HYDROXYCHLOROQUINE SULFATE 200 MG TABLET 1 TABLET WITH FOOD OR MILK ORALLY BID TAKING NORCO 10-325 MG TABLET 1 TABLET NEEDED ORALLY EVERY 6 HRS PRN PAIN MDD=4 TAKING GLUCOSAMINE CHONDRO COMPLEX - CAPSULE 2 TABLETS ORALLY DAILY NOT-TAKING NORTRIPTYLINE HCL 25 MG CAPSULE 1 CAPSULE ORALLY BID NOT-TAKING MOVANTIK 25 MG TABLET 1 TABLET IN THE MORNING ORALLY ONCE A DAY NOT-TAKING MAGNESIUM _ TABLET 1 TABLET WITH A MEAL ORALLY ONCE A DAY NOT-TAKING PERCOCET 5-325 MG TABLET 1 TABLET NEEDED ORALLY EVERY 6 HRS PRN PAIN MDD=4 NOT-TAKING VALIUM 5 MG TABLET 1 TABLET ORALLY TAKE ON ARRIVAL FOR INJECTION NOT-TAKING VALIUM 10 MG TABLET 1 TABLET ORALLY THREE TIMES DAILY NOT-TAKING TYLENOL ARTHRITIS PAIN 650 MG TABLET EXTENDED RELEASE ORALLY BID PRN NOT-TAKING TRAMADOL HCL 50 MG TABLET 1-2 TABLET ORALLY EVERY 8 PRN PAIN MDD=3 MEDICATION LIST REVIEWED AND RECONCILED WITH THE PATIENT PAST MEDICAL HISTORY SMALL ARTERY DIABETES HTN A FIB HYPOTHYROIDISM FIBROMYALGIA PTSD ANXIETY/DEPRESSION DDD SPINAL STENOSIS ARTHRITIS ELEVATED CHOLESTEROL/TRIGLYCERIDES IBS ALLERGIES SULFA (FOR ALLERGY USE ONLY): RASH, HEADACHE: ALLERGY ENVIRONMENTAL: NASAL DRAINAGE, ITCHY EYES: ALLERGY SOCIAL HISTORY GENERAL: TOBACCO USE ARE YOU A:FORMER SMOKER HOW LONG HAS IT BEEN SINCE YOU LAST SMOKED?5-10 YEARS RECREATIONAL DRUG USE DRUG USE?NO ANGLICAN [id number] TENRIISM LANGUAGE LANGUAGES SPOKEN:[place] LEARNING BARRIERS / SPECIAL NEEDS BARRIERS TO LEARNING?NO HEARING IMPAIRED?NO VISION IMPAIRED?YES :CORRECTIVE LENSES COGNITIVELY IMPAIRED?NO READINESS TO LEARN?YES LEARNING PREFERENCES?NO LEARNING CAPABILITIES PRESENT?YES EMOTIONAL BARRIERS?NO SPECIAL DEVICES?NO CONCEPT ARTIST NEEDED?NO PAIN CLINIC PFS, CLERGY, PUBLIC HEALTH REFERRALS PFS REFERRAL NEEDED?NO CLERGY REFERRAL NEEDED?NO PUBLIC HEALTH REFERRAL NEEDED?NO WAS THE PROVIDER NOTIFIED OF ANY PERTINENT INFO?NO HAS THE PATIENT BEEN EDUCATED REGARDING HIS/HER PLAN OF CARE?YES HAS THE PATIENT BEEN EDUCATED REGARDING PAIN, THE RISK FOR PAIN, THE IMPORTANCE OF EFFECTIVE PAIN MANAGEMENT, AND THE PAIN ASSESSMENT PROCESS?YES PATIENT: ____. ADVANCE DIRECTIVES HEALTH CARE PROXY?NO WOULD YOU LIKE MORE INFORMATION?NO DO YOU HAVE A DNR?NO WOULD YOU LIKE MORE INFORMATION?NO LIVING WILL?NO WOULD YOU LIKE MORE INFORMATION?NO POWER OF GREASE MAKER HEAD?NO WOULD YOU LIKE MORE INFORMATION?NO REVIEW OF SYSTEMS REVIEWED BY: PROVIDER: MICHELLE BARRIGA . CONSTITUTIONAL: ANY CHANGE IN YOUR MEDICAL CONDITION? NO . CHILLS NO . FEVER NO . INFECTION: DO YOU HAVE NEW INFECTIONS? NO . DO YOU HAVE HISTORY OF MRSA? NO . MUSCULOSKELETAL: ANY NEW PATTERNS OF PAIN OR NUMBNESS? YES, BOTH ARMS, BOTH LEGS, AND BOTH FEET WITH INCREASED PAIN FOR PAST 2 WEEKS . GASTROENTEROLOGY: GENERAL RECENT COLONOSCOPY/ENDOSCOPY. WAS TOLD HER ESOPHOGUS IS "SIDEWAYS" AND THAT THERE ARE NO POLPYS. MOVANTIX HAS STOPPED WORKING. STILL WILL PROBLEMS WITH CONSTIPATION. . ANY NEW CHANGE IN BOWEL CONTROL? NO . GENITOURINARY: ANY NEW CHANGE IN BLADDER CONTROL? NO . IS THERE A CHANCE YOU COULD BE ? NO . HEMATOLOGY/LYMPH: DO YOU TAKE ANY BLOOD THINNERS? (FOR EXAMPLE- COUMADIN, PLAVIX, AGGRENOX, PLATEL, PRADAXA, OR XARELTO) NO . WHEN WAS YOUR LAST DOSE? DATE: TIME: . NEUROLOGY: HAVE YOU FALLEN IN THE PAST 6 MONTHS? NO . ANY NEW EXTREMITY NUMBNESS OR WEAKNESS? NO . CARDIOLOGY: DO YOU HAVE A PACEMAKER OR DEFIBRILLATOR? NO . RESPIRATORY: HAVE YOU BEEN SICK IN THE PAST WEEK? NO . FEVER NO . FLU LIKE SYMPTOMS? NO . COUGH NO . INTEGUMENTARY: DO YOU HAVE ANY RASHES OR OPEN SORES? NO . ALLERGIC/IMMUNO: ARE YOU ALLERGIC TO SHELLFISH OR IV DYE? NO . ANY NEW ALLERGIES? NO . PSYCHIATRIC: DO YOU HAVE THOUGHTS OF HURTING YOURSELF OR SOMEONE ELSE? NO . ARE YOU ABUSED, NEGLECTED, OR IN AN UNSAFE ENVIRONMENT? NO . ENDOCRINOLOGY: ARE YOU DIABETIC? YES . OTHER: DO YOU NEED ANY PRESCRIPTIONS? YES . IF YES, PLEASE LIST: HYDROCODONE . ANY NEW PROBLEMS WITH YOUR MEDICATIONS? NO . WHEN DID YOU LAST EAT? ____ . WHEN DID YOU LAST DRINK? ____ . WHAT DID YOU LAST DRINK? ____ . NAME OF PERSON DRIVING YOU HOME? ____ . DO YOU HAVE ANY OTHER QUESTIONS OR CONCERNS YES . HEENT: GENERAL RECENT DENTAL WORK, REQUIRING EXTRACTION AND ANTIBIOTICS . VITAL SIGNS WT 237.2 LBS, HT 62 IN, BMI 43.38 INDEX, BP 150/81 MM HG, HR 59 /MIN, RR 16 /MIN, TEMP 98.0 F, OXYGEN SAT % 98, NA INITIALS MP 1327, REVIEWED BY: AUDREY. EXAMINATION GENERAL EXAMINATION: PSYCHALERT , ORIENTED X 3 , APPROPRIATE MOOD AND AFFECT , GOOD EYE CONTACT. LUNGS:CLEAR TO AUSCULTATION BILATERALLY. HEART:HEART RATE REGULAR. MUSCULOSKELETAL:PALPATION: POSITIVE FOR PAIN OVER LUMBAR SPINOUS PROCESSES. TENDERNESS OVER LEFT>RIGHT SIJ., TRIGGER POINTS:, ELICITED WITH PALPATION OVER LUMBAR PARAVERTEBRAL MUSCLES AND INTO THE SACRUM. RESTRICTION OF ROM IN THIS AREA SLOW TO RISE TO STANDING POSITION. POSTURE AND GAIT STIFF.. ASSESSMENTS SPONDYLOSIS WITHOUT MYELOPATHY OR RADICULOPATHY, LUMBAR REGION - M47.816 (PRIMARY) SPONDYLOSIS WITHOUT MYELOPATHY OR RADICULOPATHY, LUMBOSACRAL REGION - M47.817 CHRONIC PRESCRIPTION OPIATE USE - Z79.891 TREATMENT SPONDYLOSIS WITHOUT MYELOPATHY OR RADICULOPATHY, LUMBAR REGION STOP NORCO TABLET, 10-325 MG, 1 TABLET NEEDED, ORALLY, EVERY 6 HRS PRN PAIN MDD=4 START HYDROMORPHONE HCL TABLET, 2 MG, 1 TABLET NEEDED, ORALLY, EVERY 6 HRS PRN PAIN MDD=4, 30 DAY(S), 120, REFILLS 0 NOTES: WISHES TO MOVE FORWARD WITH DORSAL COLUMN STIMULATOR. CLINICAL NOTES: ISTOP REGISTRY REVIEWED AND DEMNOSTRATES COMPLLIANCE. (REF # [id number]) BRINGS IN MEDICATIONS WHICH IS APPROPRIATE FOR WHAT WAS DISPENSED. RECENT URINE TOXICOLOGY REVIEWED. NO UNAUTHORIZED MEDICATIONS. NO ILLICIT SUBSTANCES AND PRESCRIBED MEDICATIONS WERE PRESENT. , REVIEWED WITH PATIENT THE POTENTIAL RISK OF INCREASED SEDATION, RESPIRATORY SUPPRESSION AND WITH THE COMBINATION OF BENZODIAZAPINE AND OPIOD MEDICATIONS. PATIENT STATES HE UNDERSTANDS THIS RISK AND WISHES TO CONTINUE WITH THERAPY. PROCEDURE CODES FA211 ESTABILISHED PATIENT [facility] FACILITY CHARGE G8730 PAIN ASSESS POS TOOL F/U PLAN DOC G8427 DOC MEDS VERIFIED W/PT OR RE DISPOSITION & COMMUNICATION FOLLOW UP 26-28 DAYS (REASON: BACK PAIN) ELECTRONICALLY SIGNED BY NANCY COUCH ON 06/09/2017 AT 08:46 AM EDT DISCLAIMER : THIS IS A VISIT SUMMARY EXTRACTED FROM THE [employer] CHART. IT IS NOT A COPY OF THE [employer] PROGRESS NOTE. YANA
== END ==
LOC: M PAIN 13:30
PROVIDERS: ATTEND Nurse Practitioner Family
DX: G89.29 Other chronic pain (principal); M47.816 Spondylosis without myelopathy or radiculopathy, lumbar region; M47.817 Spondylosis without myelopathy or radiculopathy, lumbosacral region; E11.9 Type 2 diabetes mellitus without complications; I10 Essential (primary) hypertension; E03.9 Hypothyroidism, unspecified; F43.10 Post-traumatic stress disorder, unspecified; F41.9 Anxiety disorder, unspecified; F32.9 Major depressive disorder, single episode, unspecified; J30.89 Other allergic rhinitis; Z88.2 Allergy status to sulfonamides; Z79.1 Long term (current) use of non-steroidal anti-inflammatories (NSAID); Z79.84 Long term (current) use of oral hypoglycemic drugs; Z79.891 Long term (current) use of opiate analgesic; Z79.899 Other long term (current) drug therapy; Z87.891 Personal history of nicotine dependence

== ENCOUNTER → 2017-06-28 | Outpatient (CLI) | payer MEDICARE, OTHER ==
--- NOTE | 2017-07-12 01:38 | ECWPNPC ---
PATIENT NAME: MIRNA LYNN : 1960 GENDER: FEMALE VISIT DATE: 06/28/2017 DISCHARGE DATE: 06/28/17 1429 VISIT LOCKED DATE TIME: PHYSICIAN: MICHELLE BELL RESOURCE: MICHELLE BELL REASON FOR APPOINTMENT 1. MEDS HISTORY OF PRESENT ILLNESS FALL RISK SCREENING: SCREENING :NO FALLS IN THE PAST YEAR PAIN SCREENING: PATIENT HAS A COMPLAINT OF ACUTE OR CHRONIC PAIN :YES TODAY'S VISIT: NOTES: REPORTS THAT THE HYDROMORPHONE 2 MG WAS NOT EFFECTIVE. STATES THAT THE HYDROCODONE 2 TABS IS ABOUT THE ONLY THING THAT CAN BE HELPFUL. RATES PAIN TODAY 4/10. HAS BEEN REQUIRED TO BE MORE ACTIVE AT HOME AND IS HAVING SIG INCREASE IN STRESS. PAIN WXES AND WANES IN INTENSITY. SLEEP IS DISRUPTED. CURRENT MEDICATIONS TAKING TRAMADOL HCL 50 MG TABLET 1 TABLET ORALLY Q 4 HRUS PRN PAIN MDD=6 TAKING WELLBUTRIN XL 100 TABLET EXTENDED RELEASE 24 HOUR 1 TABLET IN THE MORNING ORALLY ONCE A DAY TAKING EC-81 ASPIRIN 81 MG TABLET DELAYED RELEASE 1 TABLET ORALLY ONCE A DAY TAKING VENTOLIN HFA 90 MCG/ACT AEROSOL SOLUTION 2 PUFFS NEEDED INHALATION EVERY 4 HRS TAKING LEXAPRO 20 20 MG TABLET 1 TAB(S) ORAL DAILY TAKING FLUTICASONE PROPIONATE 50 MCG/DOSE SUSPENSION 2 SPRAY IN EACH NOSTRIL NASALLY ONCE A DAY TAKING FISH OIL 1000 MG CAPSULE 1 CAPSULE ORALLY ONCE A DAY TAKING IBUPROFEN 800 MG TABLET 1 TAB ORAL QID PRN TAKING LEVOXYL 125 MCG TABLET 1 TABLET ORALLY ONCE A DAY TAKING LISINOPRIL 2.5 MG TABLET 1 TABLET ORALLY ONCE A DAY TAKING METFORMIN HCL ER 500 MG TABLET EXTENDED RELEASE 24 HOUR 1 TAB(S) ORALLY BID TAKING TOPROL XL 100 MG TABLET EXTENDED RELEASE 1 TABLET ORALLY ONCE A DAY TAKING PROTONIX 20 MG TABLET DELAYED RELEASE 1 TAB ORALLY ONCE A DAY TAKING ZANTAC 150 MAXIMUM STRENGTH 150 MG TABLET 1 TABLET ORALLY TWICE A DAY TAKING MAXALT-HONING MACHINE OPERATOR SEMIAUTOMATIC 10 MG TABLET DISPERSIBLE 1 TABLET ON THE TONGUE AND ALLOW TO DISSOLVE NEEDED ONE TIME ORALLY ONCE A DAY TAKING SIMVASTATIN 20 MG TABLET 1 TAB(S) ORALLY ONCE A DAY TAKING TIZANIDINE HCL 4 MG TABLET 1-2 TABLET NEEDED ORALLY EVERY 8 HRS TAKING TOPAMAX 100 MG TABLET 1 TABLET ORALLY TWICE A DAY TAKING VITAMIN D (ERGOCALCIFEROL) 40905 UNIT CAPSULE 1 CAPSULE ORALLY WEEKLY TAKING MULTIVITAMIN - 1 TAB(S) ORALLY DAILY TAKING AMBIEN 10 MG TABLET 1 TABLET AT BEDTIME NEEDED ORALLY ONCE A DAY TAKING LIDOCAINE 5 % PATCH 1 PATCH TO INTACT SKIN REMOVE AFTER 12 HOURS EXTERNALLY ONCE A DAY TAKING ATIVAN 2 MG TABLET 2 TAB(S) ORALLY UP TO 14 MG PER 24 HOURS TAKING ABILIFY 2 MG TABLET 1 TABLET ORALLY ONCE A DAY TAKING HYDROXYCHLOROQUINE SULFATE 200 MG TABLET 1 TABLET WITH FOOD OR MILK ORALLY BID TAKING GLUCOSAMINE CHONDRO COMPLEX - CAPSULE 2 TABLETS ORALLY DAILY TAKING HYDROMORPHONE HCL 2 MG TABLET 1 TABLET NEEDED ORALLY EVERY 6 HRS PRN PAIN MDD=4 NOT-TAKING NORTRIPTYLINE HCL 25 MG CAPSULE 1 CAPSULE ORALLY BID NOT-TAKING MOVANTIK 25 MG TABLET 1 TABLET IN THE MORNING ORALLY ONCE A DAY NOT-TAKING MAGNESIUM _ TABLET 1 TABLET WITH A MEAL ORALLY ONCE A DAY NOT-TAKING PERCOCET 5-325 MG TABLET 1 TABLET NEEDED ORALLY EVERY 6 HRS PRN PAIN MDD=4 NOT-TAKING VALIUM 5 MG TABLET 1 TABLET ORALLY TAKE ON ARRIVAL FOR INJECTION NOT-TAKING VALIUM 10 MG TABLET 1 TABLET ORALLY THREE TIMES DAILY NOT-TAKING TYLENOL ARTHRITIS PAIN 650 MG TABLET EXTENDED RELEASE ORALLY BID PRN NOT-TAKING TRAMADOL HCL 50 MG TABLET 1-2 TABLET ORALLY EVERY 8 PRN PAIN MDD=3 MEDICATION LIST REVIEWED AND RECONCILED WITH THE PATIENT PAST MEDICAL HISTORY SMALL ARTERY DIABETES HTN A FIB HYPOTHYROIDISM FIBROMYALGIA PTSD ANXIETY/DEPRESSION DDD SPINAL STENOSIS ARTHRITIS ELEVATED CHOLESTEROL/TRIGLYCERIDES IBS ALLERGIES SULFA (FOR ALLERGY USE ONLY): RASH, HEADACHE: ALLERGY ENVIRONMENTAL: NASAL DRAINAGE, ITCHY EYES: ALLERGY SURGICAL HISTORY C SECTION 08/17/1978 C SECTION 09/06/1981 CSECTION 09/21/87 C SECTION 12/26/1988 TONCILECTOMY 06/1977 D&C X2 07/1983 FAMILY HISTORY FATHER: 86 YRS, DIAGNOSED WITH HEART DISEASE MOTHER: 56 YRS, DIAGNOSED WITH DIABETES, HYPERTENSION, CANCER SIBLINGS: ALIVE, DIAGNOSED WITH DIABETES, CANCER SON(S): ALIVE DAUGHTER(S): ALIVE 1 BROTHER(S) , 5 SISTER(S) . 2 SON(S) , 2 DAUGHTER(S) - HEALTHY. MOM OVARIAN CANCERSISTER BREAST CANCER4 SISTERS WITH DM1 BROTHER MURDERED. SOCIAL HISTORY GENERAL: TOBACCO USE ARE YOU A:FORMER SMOKER HOW LONG HAS IT BEEN SINCE YOU LAST SMOKED?5-10 YEARS RECREATIONAL DRUG USE DRUG USE?NO CAFFEINE CAFFEINE USE?YES 1 SODA DAILY CAODAISM [id number] MANDAEISM LANGUAGE LANGUAGES SPOKEN:SWEDISH LEARNING BARRIERS / SPECIAL NEEDS BARRIERS TO LEARNING?NO HEARING IMPAIRED?NO VISION IMPAIRED?YES :CORRECTIVE LENSES COGNITIVELY IMPAIRED?NO READINESS TO LEARN?YES LEARNING PREFERENCES?NO LEARNING CAPABILITIES PRESENT?YES EMOTIONAL BARRIERS?NO SPECIAL DEVICES?NO DISABILITY LIAISON OFFICER NEEDED?NO PAIN CLINIC PFS, CLERGY, PUBLIC HEALTH REFERRALS PFS REFERRAL NEEDED?NO CLERGY REFERRAL NEEDED?NO PUBLIC HEALTH REFERRAL NEEDED?NO WAS THE PROVIDER NOTIFIED OF ANY PERTINENT INFO?YES HAS THE PATIENT BEEN EDUCATED REGARDING HIS/HER PLAN OF CARE?YES HAS THE PATIENT BEEN EDUCATED REGARDING PAIN, THE RISK FOR PAIN, THE IMPORTANCE OF EFFECTIVE PAIN MANAGEMENT, AND THE PAIN ASSESSMENT PROCESS?YES PATIENT: ____. ADVANCE DIRECTIVES HEALTH CARE PROXY?NO WOULD YOU LIKE MORE INFORMATION?NO DO YOU HAVE A DNR?NO WOULD YOU LIKE MORE INFORMATION?NO LIVING WILL?NO WOULD YOU LIKE MORE INFORMATION?NO POWER OF BALL SORTER?NO WOULD YOU LIKE MORE INFORMATION?NO HOSPITALIZATION/MAJOR DIAGNOSTIC PROCEDURE NO HOSPITALIZATION HISTORY. REVIEW OF SYSTEMS REVIEWED BY: PROVIDER: . CONSTITUTIONAL: ANY CHANGE IN YOUR MEDICAL CONDITION? NO . CHILLS NO . FEVER NO . INFECTION: DO YOU HAVE NEW INFECTIONS? NO . DO YOU HAVE HISTORY OF MRSA? NO . MUSCULOSKELETAL: ANY NEW PATTERNS OF PAIN OR NUMBNESS? NO . SYTEMIC LUPUS NO . GASTROENTEROLOGY: GENERAL SIG CONSTIPATION. HAD RECENT COLONOSCOPY AND ENDOSCOPY. REPORTS AN ULCER AND POLYPS WERE FOUND AND SO WAS A SPOT ON THE PANCREAS AND SAMUELS . ANY NEW CHANGE IN BOWEL CONTROL? NO . BARRETTS ESOPHAGUS NO . CIRRHOSIS NO . HEPATITIS NO . LIVER FAILURE NO . ACID REFLUX NO . UNEXPLAINED WEIGHT LOSS NO . GENITOURINARY: ANY NEW CHANGE IN BLADDER CONTROL? NO . IS THERE A CHANCE YOU COULD BE ? NO . HEMATOLOGY/LYMPH: DO YOU TAKE ANY BLOOD THINNERS? (FOR EXAMPLE- COUMADIN, PLAVIX, AGGRENOX, PLATEL, PRADAXA, OR XARELTO) NO . WHEN WAS YOUR LAST DOSE? DATE: TIME: . LOW PLATELET COUNT NO . SICKLE CELL DISEASE NO . VON WILLIEBRANDS NO . FACTOR V LEIDEN NO . THALLASEMIA NO . ANEMIA NO . EASY BRUISING NO . NEUROLOGY: HAVE YOU FALLEN IN THE PAST 6 MONTHS? NO . ANY NEW EXTREMITY NUMBNESS OR WEAKNESS? NO . HEAD INJURY NO . DEMENTIA NO . CEREBRAL PALSY NO . MULTIPLE SCLEROSIS NO . DIZZINESS NO . HEADACHE NO . STROKES NO . VERTIGO NO . CARDIOLOGY: DO YOU HAVE A PACEMAKER OR DEFIBRILLATOR? NO . ANGINA NO . HEART ATTACK NO . HEART SURGERY NO . CONGESTIVE HEART FAILURE/FLUID OVERLOAD NO . CHEST PAIN NO . HIGH BLOOD PRESSURE NO . IRREGULAR HEART BEAT NO . RESPIRATORY: HAVE YOU BEEN SICK IN THE PAST WEEK? YES RESPIRATORY . FEVER NO . FLU LIKE SYMPTOMS? NO . CPAP NO . BYPAP NO . ASTHMA NO . EMPHYSEMA NO . CHRONIC LUNG DISEASES NO . SHORTNESS OF BREATH ON EXERTION NO . COUGH NO . SNORING NO . INTEGUMENTARY: DO YOU HAVE ANY RASHES OR OPEN SORES? NO . ALLERGIC/IMMUNO: ARE YOU ALLERGIC TO SHELLFISH OR IV DYE? NO . ANY NEW ALLERGIES? NO . PSYCHIATRIC: DO YOU HAVE THOUGHTS OF HURTING YOURSELF OR SOMEONE ELSE? NO . ARE YOU ABUSED, NEGLECTED, OR IN AN UNSAFE ENVIRONMENT? NO . ENDOCRINOLOGY: ARE YOU DIABETIC? NO . THYROID DISORDER NO . OTHER: DO YOU NEED ANY PRESCRIPTIONS? YES TRAMADOL ,HYDROCODONE . IF YES, PLEASE LIST: ____ . ANY NEW PROBLEMS WITH YOUR MEDICATIONS? NO . WHEN DID YOU LAST EAT? ____ . WHEN DID YOU LAST DRINK? ____ . WHAT DID YOU LAST DRINK? ____ . NAME OF PERSON DRIVING YOU HOME? ____ . DO YOU HAVE ANY OTHER QUESTIONS OR CONCERNS NO . PSYCHOLOGY: ARE YOU RECEIVING COUNSELING? FOLLOWS CLOSELY WITH DR GO . VITAL SIGNS WT 233.2 LBS, HT 62 IN, BMI 42.65 INDEX, BP 160/90 MM HG, HR 88 /MIN, RR 16 /MIN, TEMP 98.6 F, OXYGEN SAT % 98%, SAFE IN ENV? (Y/N) Y, NA INITIALS TL 1333, REVIEWED BY: MAXI. EXAMINATION GENERAL EXAMINATION: PSYCHALERT , ORIENTED X 3 , APPROPRIATE MOOD AND AFFECT , GOOD EYE CONTACT. LUNGS:CLEAR TO AUSCULTATION BILATERALLY. HEART:HEART RATE REGULAR. MUSCULOSKELETAL:PALPATION: POSITIVE FOR PAIN OVER LUMBAR SPINOUS PROCESSES. TENDERNESS OVER LEFT>RIGHT SIJ., TRIGGER POINTS:, ELICITED WITH PALPATION OVER LUMBAR PARAVERTEBRAL MUSCLES AND INTO THE SACRUM. RESTRICTION OF ROM IN THIS AREA SLOW TO RISE TO STANDING POSITION. POSTURE AND GAIT STIFF.. ASSESSMENTS SPONDYLOSIS WITHOUT MYELOPATHY OR RADICULOPATHY, LUMBAR REGION - M47.816 (PRIMARY) SPONDYLOSIS WITHOUT MYELOPATHY OR RADICULOPATHY, LUMBOSACRAL REGION - M47.817 CHRONIC PRESCRIPTION OPIATE USE - Z79.891 TREATMENT SPONDYLOSIS WITHOUT MYELOPATHY OR RADICULOPATHY, LUMBAR REGION STOP HYDROMORPHONE HCL TABLET, 2 MG, 1 TABLET NEEDED, ORALLY, EVERY 6 HRS PRN PAIN MDD=4 REFILL TRAMADOL HCL TABLET, 50 MG, 1 TABLET, ORALLY, Q 4 HRUS PRN PAIN MDD=6, 30 DAY(S), 180, REFILLS 2 START NORCO TABLET, 10-325 MG, 1 TABLET NEEDED, ORALLY, EVERY 4 HOURS PRN PAIN MDD=6, 30 DAY(S), 180, REFILLS 0 NOTES: WE WILL COUNT AND DESTROY THE HYDROMORPHONE. BERNA TO DR REEDER ABOUT CYMBALTA. CLINICAL NOTES: ISTOP REGISTRY REVIEWED AND DEMNOSTRATES COMPLLIANCE. BRINGS IN MEDICATIONS WHICH IS APPROPRIATE FOR WHAT WAS DISPENSED. RECENT URINE TOXICOLOGY REVIEWED. NO UNAUTHORIZED MEDICATIONS. NO ILLICIT SUBSTANCES AND PRESCRIBED MEDICATIONS WERE PRESENT. REF # [id number]. PROCEDURE CODES FA211 ESTABILISHED PATIENT [facility] CHARGE DISPOSITION & COMMUNICATION FOLLOW UP 7 WEEKS (REASON: BACK PAIN) ELECTRONICALLY SIGNED BY NANCY COUCH ON 07/11/2017 AT 07:01 PM EST DISCLAIMER : THIS IS A VISIT SUMMARY EXTRACTED FROM THE [employer] CHART. IT IS NOT A COPY OF THE [employer] PROGRESS NOTE. YANA
== END ==
LOC: M PAIN 13:30
PROVIDERS: ATTEND Nurse Practitioner Family
DX: G89.29 Other chronic pain (principal); M47.816 Spondylosis without myelopathy or radiculopathy, lumbar region; M47.817 Spondylosis without myelopathy or radiculopathy, lumbosacral region; E11.9 Type 2 diabetes mellitus without complications; I10 Essential (primary) hypertension; E03.9 Hypothyroidism, unspecified; F43.10 Post-traumatic stress disorder, unspecified; F41.9 Anxiety disorder, unspecified; F32.9 Major depressive disorder, single episode, unspecified; J30.89 Other allergic rhinitis; Z88.2 Allergy status to sulfonamides; Z79.891 Long term (current) use of opiate analgesic; Z79.1 Long term (current) use of non-steroidal anti-inflammatories (NSAID); Z79.84 Long term (current) use of oral hypoglycemic drugs; Z79.899 Other long term (current) drug therapy; Z87.891 Personal history of nicotine dependence

== ENCOUNTER → 2017-09-07 | Outpatient (CLI) | payer MEDICARE, OTHER | LOC: M PAIN 14:00 | DX: M47.816 Spondylosis without myelopathy or radiculopathy, lumbar region (principal); M47.817 Spondylosis without myelopathy or radiculopathy, lumbosacral region; E11.9 Type 2 diabetes mellitus without complications; I10 Essential (primary) hypertension; E03.9 Hypothyroidism, unspecified; M79.7 Fibromyalgia; F43.10 Post-traumatic stress disorder, unspecified; F41.9 Anxiety disorder, unspecified; F32.9 Major depressive disorder, single episode, unspecified; E78.00 Pure hypercholesterolemia, unspecified; M19.90 Unspecified osteoarthritis, unspecified site; J30.89 Other allergic rhinitis; Z79.891 Long term (current) use of opiate analgesic; Z79.84 Long term (current) use of oral hypoglycemic drugs; Z79.899 Other long term (current) drug therapy; Z88.2 Allergy status to sulfonamides; Z87.891 Personal history of nicotine dependence; Z86.79 Personal history of other diseases of the circulatory system | CPT/HCPCS: G0463 ==

== ENCOUNTER → 2017-11-01 | Outpatient (CLI) | payer MEDICARE, OTHER | LOC: M PAIN 13:45 | DX: M47.816 Spondylosis without myelopathy or radiculopathy, lumbar region (principal); M79.1 Myalgia; E11.9 Type 2 diabetes mellitus without complications; F41.9 Anxiety disorder, unspecified; F32.9 Major depressive disorder, single episode, unspecified; E03.9 Hypothyroidism, unspecified; Z79.891 Long term (current) use of opiate analgesic; Z79.82 Long term (current) use of aspirin; Z79.84 Long term (current) use of oral hypoglycemic drugs; Z79.899 Other long term (current) drug therapy; Z88.8 Allergy status to other drugs, medicaments and biological substances; J30.2 Other seasonal allergic rhinitis; Z87.891 Personal history of nicotine dependence | CPT/HCPCS: G0463 ==

== ENCOUNTER → 2019-04-22 | Outpatient (CLI) | payer MEDICARE ==
[~2019-04-22] MED LIST changes: -DRIS50002 PO; +DRIS50003 PO; +LAMO100T80 PO; -LAMO10TA PO; +LISI-1046 PO; -LISI2.5T3 PO
--- NOTE | 2019-05-07 02:18 | ECWPNPC ---
PATIENT NAME: MIRNA LYNN : 1960 GENDER: FEMALE VISIT DATE: 04/22/2019 DISCHARGE DATE: 04/22/19 1110 VISIT LOCKED DATE TIME: PHYSICIAN: YASMIN CANALES RESOURCE: YASMIN CANALES REASON FOR APPOINTMENT 1. BACK-LAST SEEN 11/01/2017 HISTORY OF PRESENT ILLNESS HISTORY OF PRESENT ILLNESS: 58 Y/O FEMALE KNOWN TO OUR PRACTICE BUT MOVED FOR A SHORT TIME HERE TO BE EVALUATED FOR MEDICATION MANAGEMENT OF CHRONIC PAIN.CHIEF AREA OF PAIN IS LOW BACK.RATING PAIN VAS 5/10.HAD DCS TRILAED AND REMOVED DUE TO INFECTION APPROXIMATLEY 1 YEAR AGO.CURRENTLY USING TIZANIDINE AND HYDROCODONE PRESCRIBED BY PRIMARY CARE WHICH SHE FINDS HELPFUL.HAS TRIALED MULTIPLE DIFFERENT PAIN MEDICATIONS OVER THE YEARS BOTH NARCOTIC AND NON NARCOTIC WITH EITHER INEFFECTIVENESS OR SIDE EFFECTS.SHE IS NOT INTERESTED IN TRYING INJECTION THERAPY AGAIN. PAIN THE PATIENT DESCRIBES THE PAIN... FALL RISK SCREENING: SCREENING :NO FALLS REPORTED IN THE LAST YEAR CURRENT MEDICATIONS TAKING VENTOLIN HFA 90 MCG/ACT AEROSOL SOLUTION 2 PUFFS NEEDED INHALATION EVERY 4 HRS TAKING LEXAPRO 20 20 MG TABLET 1 TAB(S) ORAL DAILY TAKING FLUTICASONE PROPIONATE 50 MCG/DOSE SUSPENSION 2 SPRAY IN EACH NOSTRIL NASALLY ONCE A DAY TAKING FISH OIL 1000 MG CAPSULE 1 CAPSULE ORALLY ONCE A DAY TAKING IBUPROFEN 800 MG TABLET 1 TAB ORAL QID PRN TAKING LISINOPRIL 10 MG TABLET 1 TABLET ORALLY ONCE A DAY TAKING TOPROL XL 100 MG TABLET EXTENDED RELEASE 1 TABLET ORALLY ONCE A DAY TAKING ZANTAC 150 MAXIMUM STRENGTH 150 MG TABLET 1 TABLET ORALLY TWICE A DAY TAKING TIZANIDINE HCL 4 MG TABLET 1-2 TABLET NEEDED ORALLY EVERY 8 HRS TAKING MULTIVITAMIN - 1 TAB(S) ORALLY DAILY TAKING ATIVAN 2 MG TABLET 2 TAB(S) ORALLY UP TO 14 MG PER 24 HOURS TAKING ABILIFY 5 MG TABLET 1 TABLET ORALLY ONCE A DAY TAKING NORCO 10-325 MG TABLET 1 TABLET NEEDED ORALLY EVERY 4 HOURS PRN PAIN MDD=6 CODE D CHRONIC PAIN TAKING LEXAPRO 20 MG TABLET 1 TABLET ORALLY ONCE A DAY TAKING BUSPIRONE HCL 5 MG TABLET 1 TABLET ORALLY BID DISCONTINUED EC-81 ASPIRIN 81 MG TABLET DELAYED RELEASE 1 TABLET ORALLY ONCE A DAY DISCONTINUED LEVOXYL 125 MCG TABLET 1 TABLET ORALLY ONCE A DAY DISCONTINUED METFORMIN HCL ER 500 MG TABLET EXTENDED RELEASE 24 HOUR 1 TAB(S) ORALLY BID DISCONTINUED PROTONIX 20 MG TABLET DELAYED RELEASE 1 TAB ORALLY ONCE A DAY DISCONTINUED MAXALT-CAR PICK UP DRIVER 10 MG TABLET DISPERSIBLE 1 TABLET ON THE TONGUE AND ALLOW TO DISSOLVE NEEDED ONE TIME ORALLY ONCE A DAY DISCONTINUED SIMVASTATIN 20 MG TABLET 1 TAB(S) ORALLY ONCE A DAY DISCONTINUED TOPAMAX 100 MG TABLET 1 TABLET ORALLY TWICE A DAY DISCONTINUED VITAMIN D (ERGOCALCIFEROL) 72809 UNIT CAPSULE 1 CAPSULE ORALLY WEEKLY DISCONTINUED AMBIEN 10 MG TABLET 1 TABLET AT BEDTIME NEEDED ORALLY ONCE A DAY DISCONTINUED LIDOCAINE 5 % PATCH 1 PATCH TO INTACT SKIN REMOVE AFTER 12 HOURS EXTERNALLY ONCE A DAY DISCONTINUED GLUCOSAMINE CHONDRO COMPLEX - CAPSULE 2 TABLETS ORALLY DAILY DISCONTINUED BIOTIN 10 MG TABLET 1 TABLET ORALLY ONCE A DAY DISCONTINUED MOVANTIK 25 MG TABLET 1 TABLET IN THE MORNING ORALLY ONCE A DAY DISCONTINUED AMITRIPTYLINE HCL 25 MG TABLET 1 TABLET ORALLY ONCE A DAY DISCONTINUED TURMERIC 500 MG TABLET ORALLY DISCONTINUED VITAMIN B COMPLEX - TABLET ORALLY DISCONTINUED TRAMADOL HCL 50 MG TABLET 1 TABLET ORALLY Q 4 HRUS PRN PAIN MDD=6CODE D CHRONIC PAIN MEDICATION LIST REVIEWED AND RECONCILED WITH THE PATIENT PAST MEDICAL HISTORY SMALL ARTERY DIABETES HTN A FIB HYPOTHYROIDISM FIBROMYALGIA PTSD ANXIETY/DEPRESSION DDD SPINAL STENOSIS ARTHRITIS ELEVATED CHOLESTEROL/TRIGLYCERIDES IBS ALLERGIES SULFA (FOR ALLERGY USE ONLY): RASH, HEADACHE - ALLERGY ENVIRONMENTAL: NASAL DRAINAGE, ITCHY EYES - ALLERGY SURGICAL HISTORY C SECTION 08/17/1978 C SECTION 09/06/1981 CSECTION 09/21/87 C SECTION 12/26/1988 TONCILECTOMY 06/1977 D&C X2 07/1983 TENS UNIT IMPLANTED AND REMOVED FOR INFECTION FAMILY HISTORY FATHER: 86 YRS, DIAGNOSED WITH UNSPECIFIED HEART DISEASE MOTHER: 56 YRS, DIABETES, OTHER MALIGNANT NEOPLASM OF UNSPECIFIED SITE, HYPERTENSION SIBLINGS: ALIVE, DIABETES, OTHER MALIGNANT NEOPLASM OF UNSPECIFIED SITE SON(S): ALIVE DAUGHTER(S): ALIVE 1 BROTHER(S) , 5 SISTER(S) . 2 SON(S) , 2 DAUGHTER(S) - HEALTHY. MOM OVARIAN CANCERSISTER BREAST CANCER4 SISTERS WITH DM1 BROTHER MURDERED. SOCIAL HISTORY GENERAL: TOBACCO USE ARE YOU A:CURRENT SMOKER HOW MANY CIGARETTES A DAY DO YOU SMOKE?21-30 PATIENT COUNSELED ON THE DANGERS OF TOBACCO USE AND URGED TO QUIT:04/22/2019 PAIN CLINIC PFS, CLERGY, PUBLIC HEALTH REFERRALS PFS REFERRAL NEEDED?NO CLERGY REFERRAL NEEDED?NO PUBLIC HEALTH REFERRAL NEEDED?NO WAS THE PROVIDER NOTIFIED OF ANY PERTINENT INFO?YES HAS THE PATIENT BEEN EDUCATED REGARDING HIS/HER PLAN OF CARE?YES HAS THE PATIENT BEEN EDUCATED REGARDING PAIN, THE RISK FOR PAIN, THE IMPORTANCE OF EFFECTIVE PAIN MANAGEMENT, AND THE PAIN ASSESSMENT PROCESS?YES CAFFEINE CAFFEINE USE?YES 1 SODA DAILY ADVANCE DIRECTIVE ADVANCE DIRECTIVE DISCUSSED WITH PATIENT:YES DELINED BUDDHIST [id number] [employer] LANGUAGE LANGUAGES SPOKEN:TAJIK ALCOHOL SCREENING DID YOU HAVE A DRINK CONTAINING ALCOHOL IN THE PAST YEAR?NO POINTS0 INTERPRETATIONNEGATIVE RECREATIONAL DRUG USE DRUG USE?NO LEARNING BARRIERS / SPECIAL NEEDS BARRIERS TO LEARNING?NO HEARING IMPAIRED?NO VISION IMPAIRED?YES COGNITIVELY IMPAIRED?NO :CORRECTIVE LENSES READINESS TO LEARN?YES LEARNING PREFERENCES?NO LEARNING CAPABILITIES PRESENT?YES EMOTIONAL BARRIERS?NO SPECIAL DEVICES?NO COMPENSATION AND BENEFITS ADVISOR NEEDED?NO REVIEWED 11/01/17 1410 LAS. HOSPITALIZATION/MAJOR DIAGNOSTIC PROCEDURE CHILDBEARING TONSILLECTOMY TENS UNIT IMPLANTED AND REMOVED REVIEW OF SYSTEMS REVIEWED BY: PROVIDER: YASMIN BARRIGA . CONSTITUTIONAL: ANY CHANGE IN YOUR MEDICAL CONDITION? NO . CHILLS NO . FEVER NO . INFECTION: DO YOU HAVE NEW INFECTIONS? NO . DO YOU HAVE HISTORY OF MRSA? NO . MUSCULOSKELETAL: ANY NEW PATTERNS OF PAIN OR NUMBNESS? YES, RIGHT SHOULDER PAIN AND BURNING SENSATION, MID BACK PAIN . GASTROENTEROLOGY: ANY NEW CHANGE IN BOWEL CONTROL? NO . GENITOURINARY: ANY NEW CHANGE IN BLADDER CONTROL? NO . IS THERE A CHANCE YOU COULD BE ? NO . HEMATOLOGY/LYMPH: DO YOU TAKE ANY BLOOD THINNERS? (FOR EXAMPLE- COUMADIN, PLAVIX, AGGRENOX, PLATEL, PRADAXA, OR XARELTO) NO . WHEN WAS YOUR LAST DOSE? DATE: TIME: . NEUROLOGY: HAVE YOU FALLEN IN THE PAST 12 MONTHS? NO . ANY NEW EXTREMITY NUMBNESS OR WEAKNESS? NO . CARDIOLOGY: DO YOU HAVE A PACEMAKER OR DEFIBRILLATOR? NO . RESPIRATORY: HAVE YOU BEEN SICK IN THE PAST WEEK? NO . FEVER NO . FLU LIKE SYMPTOMS? NO . COUGH NO . INTEGUMENTARY: DO YOU HAVE ANY RASHES OR OPEN SORES? NO . ALLERGIC/IMMUNO: ARE YOU ALLERGIC TO IV DYE? NO . ANY NEW ALLERGIES? NO . PSYCHIATRIC: DO YOU HAVE THOUGHTS OF HURTING YOURSELF OR SOMEONE ELSE? NO . ARE YOU ABUSED, NEGLECTED, OR IN AN UNSAFE ENVIRONMENT? NO . ENDOCRINOLOGY: ARE YOU DIABETIC? NO . OTHER: DO YOU NEED ANY PRESCRIPTIONS? YES, NORCO AND TIZANIDINE . IF YES, PLEASE LIST: ____ . ANY NEW PROBLEMS WITH YOUR MEDICATIONS? NO . WHEN DID YOU LAST EAT? ____ . WHEN DID YOU LAST DRINK? ____ . WHAT DID YOU LAST DRINK? ____ . NAME OF PERSON DRIVING YOU HOME? ____ . DO YOU HAVE ANY OTHER QUESTIONS OR CONCERNS NO . VITAL SIGNS WT 252.2 LBS, HT 62 IN, BMI 46.12 INDEX, BP 192/89 MM HG, HR 70 /MIN, RR 18 /MIN, TEMP 97.4 F, OXYGEN SAT % 98%, NA INITIALS SC 10:33, REVIEWED BY: EM. EXAMINATION GENERAL EXAMINATION: GENERAL AWAKE,ALERT ,PLEAASANT . PSYCH AFFECT NORMAL . NECK: TRACHEA MIDLINE. NO CERVICAL OR SUPRACLAVICULAR LYMPHADENOPATHY NOTED. LUNGS: LUNG PLATT ARE CLEAR TO AUSCULTATION BILATERALLY. GOOD MOVEMENT OF AIR . HEART: S1, S2 IN A REGULAR RATE AND RHYTHM. NO SIGNIFICANT MURMURS, RUBS OR GALLOPS NOTED . MUSCULOSKELETAL: MUSCLE STRENGTH TESTING 5/5 BILATERAL UPPER/LOWER EXTREMITIES. LUMBAR SACRAL SPINE PALPATION: TENDERNESS OVER SIJ BILAT. WELL HEALED INCISIONS NOTED WHERE DCS WAS PLACED. CERVICAL NEGATIVE FOR PAIN WITH PALPATION OF CERVICAL SPINE. NEGATIVE FOR PAIN WITH PALPATION OF CERVICAL PARASPINALS. NEGATIVE FOR PAIN WITH PALPATION OF TRAPEZIUS BILAT. SKIN: NO RASH OR SKIN LESIONS. NEUROLOGIC EXAM: CN'S NORMAL TESTED , DTRS 1-2+ IN ALL 4 EXTREMITIES. ASSESSMENTS SPONDYLOSIS WITHOUT MYELOPATHY OR RADICULOPATHY, LUMBAR REGION - M47.816 (PRIMARY) FIBROMYALGIA - M79.7 TREATMENT SPONDYLOSIS WITHOUT MYELOPATHY OR RADICULOPATHY, LUMBAR REGION REFERRAL TO:[facility] [place] PALLIATIVE CAREBIGGNOWYousif REASON:CHRONIC PAIN-HX L/S SPONDYLOSIS AND FIBROMYALGIA-NOT INTERESTED IN INTERVENTIONAL INJECTION TRIALS PROCEDURE CODES FA211 ESTABILISHED PATIENT [facility] FACILITY CHARGE DISPOSITION & COMMUNICATION FOLLOW UP NO F/U NECESSARY (REASON: REFER TO PALLIATIVE CARE) ELECTRONICALLY SIGNED BY NITHYA SANCHEZ ON 05/06/2019 AT 02:04 PM EDT DISCLAIMER : THIS IS A VISIT SUMMARY EXTRACTED FROM THE [employer] CHART. IT IS NOT A COPY OF THE [employer] PROGRESS NOTE. MTDD
== END ==
LOC: M PAIN 10:15
PROVIDERS: ATTEND Nurse Practitioner Family
DX: M47.816 Spondylosis without myelopathy or radiculopathy, lumbar region (principal); M79.7 Fibromyalgia; E11.9 Type 2 diabetes mellitus without complications; I10 Essential (primary) hypertension; Z86.59 Personal history of other mental and behavioral disorders; M19.90 Unspecified osteoarthritis, unspecified site; F17.210 Nicotine dependence, cigarettes, uncomplicated; Z88.2 Allergy status to sulfonamides; E66.01 Morbid (severe) obesity due to excess calories; Z68.42 Body mass index [BMI] 45.0-49.9, adult; Z79.899 Other long term (current) drug therapy

== ENCOUNTER → 2022-10-20 | Outpatient (CLI) | payer MEDICARE ==
[~2022-10-20] MED LIST changes: -LISI-1046 PO; +LISI2.5T9 PO; -MAXA10TA14 PO; -MOVA1TAB2 PO; +NALO25TA PO; +RIZA10TA64 PO; -SIMV20TA2 PO; +SIMV20TA22 PO
== END ==
LOC: M PAIN 13:00
PROVIDERS: ATTEND Nurse Practitioner Family
DX: M79.10 Myalgia, unspecified site (principal); G89.29 Other chronic pain; R73.03 Prediabetes; I10 Essential (primary) hypertension; E03.9 Hypothyroidism, unspecified; M79.7 Fibromyalgia; M48.00 Spinal stenosis, site unspecified; F17.210 Nicotine dependence, cigarettes, uncomplicated; Z86.59 Personal history of other mental and behavioral disorders; Z88.2 Allergy status to sulfonamides; E66.01 Morbid (severe) obesity due to excess calories; Z68.43 Body mass index [BMI] 50.0-59.9, adult; Z79.01 Long term (current) use of anticoagulants; Z79.84 Long term (current) use of oral hypoglycemic drugs; Z79.890 Hormone replacement therapy; Z79.899 Other long term (current) drug therapy

== ENCOUNTER → 2023-05-17 | Outpatient (CLI) | payer MEDICARE | LOC: M RAD 09:17 | PROVIDERS: ATTEND Physician Assistant | DX: R14.0 Abdominal distension (gaseous) (principal); R10.9 Unspecified abdominal pain; R74.8 Abnormal levels of other serum enzymes | CPT/HCPCS: 78227; A9537 ==